=== PATIENT | male | born 1970 | race Caucasian/White ===

== ENCOUNTER 2016-02-22 15:10 | Outpatient (CLI) | payer OTHER ==
[2016-02-22 10:14] LABS: HEMATOCRIT 28.4 % (40.0-51.0); HEMOGLOBIN 9.6 g/dL (13.7-17.5); LIPEMIA HEMOLYSIS FLAG 90 (0-99); MEAN CELL HEMOGLOBIN 31.5 pg (27.9-34.1); MEAN CELL HEMOGLOBIN CONC. 33.8 g/dL (32.4-36.7); MEAN CELL VOLUME 93.1 fL (81.5-99.8); PLATELET CLUMPS FLAG 10 (0-99); PLATELET COUNT 2 10^3/uL (150-400); RED BLOOD CELL COUNT 3.05 10^6/uL (4.40-6.38); RED CELL DISTRIBUTION WIDTH 15.3 % (11.5-15.2)
[2016-02-22] MEDS ORDERED: diphenhydrAMINE 25 MG CAP PO ONE (16:00)
[2016-02-22] MEDS ORDERED: ACETAMINOPHEN 325 MG TAB PO ONE (16:00)
== END 2016-02-22 17:50 | disposition home or self-care (01) ==
LOC: FOBOP 15:10
PROVIDERS: ATTEND Internal Medicine Hematology & Oncology
PROC: 30233R1 Transfusion of Nonautologous Platelets into Peripheral Vein, Percutaneous Approach (ICD-10-PCS; principal; 2016-02-22)
DX: C92.00 Acute myeloblastic leukemia, not having achieved remission (principal)
CPT/HCPCS: P9037

== ENCOUNTER → 2016-02-28 | Outpatient (CLI) | payer OTHER ==
--- NOTE | 2016-02-28 14:37 | US ---
Ultrasound Venous Duplex Doppler right Arm History: Right arm pain and swelling. Comparison: Ultrasound January 24, 2016. Findings: Ultrasound venous duplex/Doppler imaging of right internal jugular vein, subclavian vein, a xillary vein, cephalic vein, brachial vein, radial vein, and ulnar veins demonstrate normal compress ibility, color flow, and Doppler flow without evidence of deep venous thrombosis. However there is po sitive occlusive intraluminal thrombus involving the right basilic vein similar to previous study. Impression: 1. Right basilic vein superficial thrombophlebitis. 2. No deep venous thrombosis right arm. Findings and recommendations discussed with Dr. Box at 1435 hour, today.
== END ==
LOC: FIMAGING 13:35
PROVIDERS: ATTEND Internal Medicine Hematology & Oncology
DX: I80.8 Phlebitis and thrombophlebitis of other sites (principal)

== ENCOUNTER 2016-03-06 09:45 | Inpatient (IN) | payer OTHER ==
[2016-03-06] MEDS ORDERED: IBUPROFEN 600 MG TAB PO ONE (10:58)
[2016-03-06] MEDS ORDERED: ALTEPLASE 2 MG VIAL IVP PRN (11:07)
[2016-03-06] MEDS: IBUPROFEN 600 MG TAB PO PRN ×2 (11:24→19:38)
[2016-03-06] MEDS ORDERED: HYDROmorphONE/DILAUDID 1 MG/ML SYR IVP PRN (11:43)
[2016-03-06] MEDS ORDERED: LORazepam 2 MG/ML INJ IVP PRN (11:43)
[2016-03-06] MEDS ORDERED: ALBUTEROL 3 ML DEYVIAL IH PRN (11:43)
[2016-03-06] MEDS ORDERED: LORazepam 0.5 MG TAB PO PRN (11:43)
[2016-03-06] MEDS ORDERED: ACETAMINOPHEN 325 MG TAB PO PRN (11:43)
[2016-03-06] MEDS ORDERED: ONDANSETRON 4 MG/2 ML VIAL IVP PRN (11:43)
[2016-03-06] MEDS ORDERED: HYDROCODONE/APAP 5/325 TAB PO PRN (11:43)
[2016-03-06] MEDS ORDERED: PROMETHAZINE HCL 25 MG TAB PO PRN (11:43)
[2016-03-06] MEDS ORDERED: ZOLPIDEM TARTRATE 5 MG TAB PO PRN (11:43)
[2016-03-06] MEDS ORDERED: NS W/ 20 KCl/L 1,000 ML IV SCH (11:45)
[2016-03-06] MEDS ORDERED: LACTULOSE 20 GM/30 ML UDCUP PO PRN (11:47)
[2016-03-06] MEDS ORDERED: oxyCODONE IR 5 MG TAB PO PRN (11:47)
[2016-03-06] MEDS: predniSONE 20 MG TAB PO SCH (12:22)
--- NOTE | 2016-03-06 12:33 | GHP ---
[f rep st] HISTORY AND PHYSICAL DATE OF ADMISSION: 03/06/2016 PRIMARY CARE PROVIDER: Dr. Mathew Box. HISTORY OF PRESENT ILLNESS: This is a 45-year-old male with a history of acute myelogenous leukemia, who was admitted for a second round of consolidation therapy. He was initially diagnosed in 12/2015 and underwent induction from 12/30 to 01/26 and then a consolidation round from 02/06 to 02/21/2016. Since his last consolidation, he has been well, healthy and been without fever, chills, sweats, cou gh, sore throat, nasal drainage, abdominal pain, nausea or vomiting. There has been no dysuria, rash or joint or muscle pain. He has in the last 5 days developed a right great toe, at the MTP joint, t enderness and swelling, consistent with prior episodes of gout. This toe is not as warm and as tende r as previously. He recognized it as gout following his recovery of white cell count and started mariah ing prednisone 20 mg yesterday but has not had much improvement. In addition, over the last 2-3 days , he has noticed an area of tenderness and swelling on the left inner forearm at just medial of the a ntecubital fossa. It is not warm but it is tender. He has had no shortness of breath, chest pain or cough. Gentleman had a PICC line placed in his right forearm for induction therapy in December of 2015 and d eveloped a blood clot in that arm at that time he reports. He then had a PICC line placed in the lef t forearm for consolidation therapy in January of 2016 and also reports developed a clot. He has no history of a deep venous thrombosis or a pulmonary embolus. He has not been placed on anticoagulant therapy. PAST SURGERY HISTORY: 1. AML with inv(16). 2. He has had a vasectomy performed. MEDICATIONS: See the med reconciliation sheet. These will be reconciled with the physician when the pharmacy has completed their assessment. ALLERGIES: He has a questionable allergy to some antibiotics, although they are not definitive. He did have a rash with a few. SOCIAL HISTORY: He lives in [place]. He is a [employer] software engineer. He consumes alcohol socially. Drugs: None. He is . FAMILY HISTORY: No prior history of malignancy noted or coronary artery disease. REVIEW OF SYSTEMS: Except as noted in the HPI, the 10-point review of systems is negative. Signific ant positive is the history of gout for which he has used prednisone. PHYSICAL EXAMINATION: GENERAL: Pleasant, alert male, who appears in no distress. HEENT: Shows no signs of trauma. Tongue and buccal mucosa show no lesions, signs of trauma and the teeth are in good repair without any evidence of periodontal disease or caries. NECK: Supple, without meningismus. There is no adenopathy in the cervical or axillary region. CHEST WALL: Nontender to palpation. WARNER GS: Clear to P and A, without wheezing or rales. HEART: Singular S1 and S2. No murmur, gallop, or rub. ABDOMEN: Normoactive bowel sounds. No masses, tenderness, or organomegaly. EXTREMITIES: No edema, cyanosis, or clubbing. The left upper forearm on the medial aspect of the antecubital fossa shows an area of tenderness and of firmness without erythema or signs of cellulitis or ascending lymp hangitis. I cannot palpate a deep cord above this. Right forearm is nontender. The right great toe shows an area of tenderness at the MTP joint, without significant erythema or marked swelling, altho ugh palpation and movement result in significant pain. LABORATORIES: Pending at the time of this dictation. ASSESSMENT: 1. Acute myelogenous leukemia in a patient who is well and healthy at this time, presenting for cons olidation therapy. 2. Acute gout in the right metatarsophalangeal joint. An increased dose of prednisone will be order ed for this. 3. Possible superficial phlebitis in the left upper arm. Ultrasound will be done to assess for evid ence of a DVT. PLAN: Orders for an ultrasound and a PICC line will be done in preparation for his consolidation the rapy. Prednisone ordered for the possibility of gout. Laboratories as needed will be ordered and re viewed. BILLING: The gentleman will be placed in inpatient status as he will require greater than 2 midnight s for completion of his therapy. Time greater than 40 minutes. /[id number]/MODL
--- NOTE | 2016-03-06 13:43 | GCON ---
[f rep st] CONSULTATION MEDICAL ONCOLOGY FOLLOWUP CONSULTATION. REASON FOR CONSULTATION: Ongoing management of acute myelogenous leukemia. The patient is in for his 2nd cycle of high dose robbie-C consolidation. RECOMMENDATIONS: 1. High dose robbie-C consolidation per previous written chemotherapy orders. This is his 2nd cycle. 2. I would evaluate his left arm with an ultrasound to see if he has thrombophlebitis or not. He did have a history of a thrombophlebitis in his right arm after a PICC line placement. 3. The patient will need a PICC line for chemotherapy. 4. He appears to have an exacerbation of gout in his right great toe. He has been treating this with ibuprofen, prednisone and allopurinol. The gout attack seems to be quieting down at this time. ASSESSMENT: This 45-year-old white male was diagnosed with acute myelogenous leukemia in December of 2015. He received induction with 7+3. He was noted to have an inversion 16. His initial course was c omplicated by typhlitis and neutropenic fever. His counts have now recovered after his 1st cycle of c onsolidation. He is ready for his 2nd cycle. At the moment, the patient is essentially asymptomatic. PAST MEDICAL HISTORY: Remarkable for a prior vasectomy. SOCIAL HISTORY: The patient lives in [facility]. He is accompanied by his today. 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 REVIEW OF SYSTEMS: Remarkable for alopecia, tenderness in the left medial antecubital area, and tk n in his right great toe. He reports no nausea, vomiting or changes in bowel habits at this time. A 1 0 system review is otherwise unremarkable. PHYSICAL EXAMINATION: GENERAL: A well-developed white male in no acute distress. He is alert and con versant and oriented x3. His weight on admission is 97.07 kg. HEENT: Shows alopecia. MOUTH: Shows no ulcerations or exudates. LUNGS: Clear to auscultation. CARDIAC: Regular rate and rhythm. ABDOMEN: Act leoncio bowel sounds. EXTREMITIES: Lower extremities show no significant edema. He does have some swellin g noted in his left great toe, and there is mild tenderness to palpation of the medial aspect of the left antecubital fossa. There is no erythema noted there. LABORATORY: His CBC today shows a white count of 8.38 with a hemoglobin of 11.2 and a platelet count of 455,000. His absolute neutrophil count is 3,660. His chemistries show a sodium of 142, his potass ium is 4.1, and his creatinine is 1.1. His liver functions are normal. Thank you very much for allowing us to continue to follow along with you during his hospitalization. We will continue to care for him during this hospitalization and beyond. /[id number]/MODL
[2016-03-06] MEDS: ALLOPURINOL 300 MG TAB PO SCH (14:11)
--- NOTE | 2016-03-06 14:39 | US ---
Duplex Doppler of the Left Upper Extremity Clinical Indications: 45-year-old male with left upper extremity pain, firmness, and swelling. He als o has a history of right upper extremity basilic vein thrombosis. Evaluate for deep or superficial ve nous thrombosis. Technique: The deep veins of the left upper arm, shoulder, and neck were imaged by compression sonog juan j, pulsed Doppler, and color Doppler. Cursory evaluation of the right internal jugular vein and the right subclavian vein were obtained for comparison purposes. Comparison Study: None. Findings: There is superficial venous thrombosis involving the left basilic vein, however clot exten ds as well into the left axillary vein (a deep vein). There is patency of the caudal left internal ju gular vein, the visualized IJ-innominate junction, the visualized subclavian vein, the paired brachia l veins, and the cephalic, radial, and ulnar veins. There is no localized fluid collection. Impression: 1. Superficial venous thrombosis of the left basilic vein. 2. Deep venous thrombosis of the left axillary vein. Results were conveyed Dr. Thanh Deshpande. Dr. Deshpande has also requested duplex reevaluation of the right upper extremity to determine if the patient is a candidate for a PICC line placement on the rig ht side. I have called the ultrasound department and requested that that exam be done, and then revie wed by our interventionalist. A test result has been communicated to a licensed care provider and documented in [employer], 2:36:36 PM , 03/06/2016, [employer] Message ID [id number].
--- NOTE | 2016-03-06 16:09 | US ---
Venous Duplex Doppler Study of Venous Duplex Doppler Study of Right Upper Extremity History: Evaluate right arm for possible PICC line placement, history of extensive left arm DVT and r ight arm basilic vein thrombosis, patient needs PICC line for consolidation chemotherapy for leukemia Comparison: February 28, 2016 Technique: High frequency transducer was used for imaging and Doppler study of the veins of the [facility] upper extremity. Pulsed Doppler and color Doppler were utilized, along with various maneuvers to assess flow in the veins. Findings: Subtotal thrombosis of the right basilic vein only, has not significantly changed. The axil terrell vein, cephalic vein and brachial vein are normally compressible and had normal waveforms within them. Normal color doppler flow is seen within the subclavian vein which is noted to have normal resp iratory variation. The internal jugular vein is normally compressible and has normal Doppler flow wit hin it. No new venous thrombosis is identified. Impression: Little if any change in nonocclusive thrombus in the right basilic vein. Perhaps the norm al cephalic vein could be utilized for right arm PICC line access.
--- NOTE | 2016-03-06 18:08 | IR ---
Imaging-Guided Peripherally Inserted Central Catheter History: Central line access for medications. Known the left upper extremity clot, and partially occ lusive right upper extremity basilic clot. Prophylactic Antibiotic: Cefazolin was not ordered and administered for antimicrobial prophylaxis be cause it was not medically necessary for this procedure. VTE Prophylaxis: There is not an order for VTE prophylaxis to be given within 24 hours after procedu re end time because it was not medically necessary for this procedure. Crosscutting Measure: Patient's current list of medications including all known prescriptions, over- the-counters, herbals, and vitamin/mineral/dietary supplements are reviewed. Medications' name, dosa ge, frequency, and route of administration are confirmed. Technique: Following informed consent, the right arm was prepped and draped in sterile fashion. 1% Xy locaine was used for local anesthetic. All elements of maximal sterile barrier technique including cap, mask, sterile gown, sterile gloves, large sterile sheet, hand hygiene, and 2% chlorhexidine for cutaneous antisepsis, followed. Ultrasound evaluation of potential access site was performed. After successfully identifying a patent vessel, ultrasound guidance was used to puncture the vein. A permanent recording was created for the patient's record. Ultrasound transducer was placed in sterile sleeve and used for real-time imaging guidance over steri le gel to enter the basilic vein. 0.018 measuring wire was passed centrally under fluoroscopic contro l. A skin aidan with scalpel blade was followed by removing the access needle. A 4 Pakistani peel-away sh eath was followed by a 4 Pakistani single-lumen central catheter, trimmed to 45 cm length. The tip of t he catheter was positioned centrally and the guidewire removed. A single fluoroscopic spot image was obtained in inspiration. The hub of the catheter was fixed to the skin using a sterile StatLock adhes leoncio device, and a sterile dressing was applied. The catheter was irrigated. Findings: The tip of the central catheter terminates at the junction of the superior vena cava and th e right atrium. Please note that despite of known partially occlusive right basilic clot, the vein is compressible, a nd I access it without difficulty, advancing the new central line without difficulty. I chose to do t his rather than taking a new vein on the right side because of high risk both the catheter thrombosin g back vein, which could in turn be more clinically significant for this patient. Fluoroscopy: 0.1 minutes, one images Impression: 4 Pakistani single lumen peripherally inserted central catheter is ready to use.
[2016-03-06] MEDS: prednisoLONE ACET 1% 5 ML OPHT.BTL EACHEYE SCH (19:07)
[2016-03-06] MEDS: ONDANSETRON 4 MG/2 ML VIAL IVP SCH (20:45)
[2016-03-06] MEDS: DEXAMETHASONE SOD PHOSPHATE 10 MG in NS 50 ML IV SCH (20:46)
[2016-03-06] MEDS: CYTARABINE IV SCH (21:51)
[2016-03-06] MEDS: NS IV SCH (21:51)
[2016-03-06 22:39] LABS: COLOR YELLOW; LEUKOCYTE ESTERASE,URINE NEGATIVE (NEGATIVE); NITRITE,URINE NEGATIVE (NEGATIVE)
[2016-03-07] MEDS: prednisoLONE ACET 1% 5 ML OPHT.BTL EACHEYE SCH ×5 (00:01→23:04)
[2016-03-07 06:45] LABS: ABSOLUTE NRBC COUNT 0.25 10^3/uL (0-0.01); ADD DIFF? YES; ADD MORPH? YES; ADD SCAN? NO; ATYPICAL LYMPHOCYTE FLAG 0 (0-99); FRAGMENT RBC FLAG 10 (0-99); HEMATOCRIT 31.1 % (40.0-51.0); HEMOGLOBIN 9.8 g/dL (13.7-17.5); LEFT SHIFT FLG 30 (0-99); LIPEMIA HEMOLYSIS FLAG 80 (0-99); MEAN CELL HEMOGLOBIN 31.7 pg (27.9-34.1); MEAN CELL HEMOGLOBIN CONCENTR. 31.5 g/dL (32.4-36.7); MEAN CELL VOLUME 100.6 fL (81.5-99.8); MEAN PLATELET VOLUME 9.4 fL (8.7-11.7); PLATELET CLUMPS FLAG 20 (0-99); PLATELET COUNT 454 10^3/uL (150-400); RED BLOOD CELL COUNT 3.09 10^6/uL (4.40-6.38)
[2016-03-07 06:49] LABS: NRBC-AUTO% 2.4 % (0.0-0.2); RED CELL DISTRIBUTION WIDTH 20.6 % (11.5-15.2)
[2016-03-07 07:17] LABS: ANION GAP 7 mEq/L (8-16); CALCIUM 8.6 mg/dL (8.5-10.4); CARBON DIOXIDE 25 mEq/l (22-31); CHLORIDE 106 mEq/L (97-110); CREATININE 0.7 mg/dL (0.7-1.3); GLOMERULAR FILTRATION RATE > 60; GLUCOSE 109 mg/dL (70-100); POTASSIUM 5.1 mEq/L (3.5-5.2); SODIUM 138 mEq/L (134-144)
[2016-03-07 07:34] LABS: MACROCYTES 1+; MICROCYTES 1+; PLATELET ESTIMATE INCREASED (ADEQ); POLYCHROMASIA 3+
[2016-03-07 07:35] LABS: GIANT PLATELETS PRESENT
[2016-03-07] MEDS: predniSONE 20 MG TAB PO SCH (08:44)
[2016-03-07] MEDS: ALLOPURINOL 300 MG TAB PO SCH (08:44)
[2016-03-07] MEDS: IBUPROFEN 600 MG TAB PO PRN (08:44)
[2016-03-07] MEDS: ONDANSETRON 4 MG/2 ML VIAL IVP SCH (08:45)
[2016-03-07] MEDS ORDERED: ENOXAPARIN 40 MG/0.4 ML SYR SC SCH (09:00)
--- NOTE | 2016-03-07 09:11 | SOAPPROG ---
ANIYAH Progress Note Assessment/Plan: Assessment: - AML in remission. Later today will start C2D2 of high dose ELSA-C consolidation. Patient had questions about BMT. I let him know that typically with AML he would need an allogenic transplant. He submitted his cheek swab kit today. - Gout R great toe - symptomatically improved. Plan: Continue high dose ELSA-C consolidation. Subjective: Pain better. Seems 'activated' on steroids. Objective: Vital Signs Temp Pulse Resp BP Pulse Ox 36.5 C 68 16 132/78 H 94 03/07/16 06:14 03/07/16 06:14 03/07/16 06:14 03/07/16 06:14 03/07/16 06:14 Laboratory Results 03/07/16 06:20 03/07/16 06:20 03/05/16 03/06/16 03/07/16 23:59 23:59 23:59 Intake Total 300 1518 Output Total 2 800 Balance 298 718 Physical Exam - Physical Exam General Appearance: alert, no apparent distress Respiratory: lungs clear Cardiac/Chest: regular rate, rhythm Abdomen: normal bowel sounds Extremities: other (no erythema R great toe) ICD10 Worksheet Patient Problems: Problems Problem Status Diagnosed AML (acute myeloblastic leukemia) Acute Febrile neutropenia Acute Pancytopenia due to antineoplastic chemotherapy Acute Typhlitis Acute
[2016-03-07] MEDS: CYTARABINE IV SCH (09:28)
[2016-03-07] MEDS: NS IV SCH (09:28)
--- NOTE | 2016-03-07 10:06 | HOSPPROG ---
Hospitalist Progress Note Assessment/Plan: ASSESSMENT/PLAN: # L axillary DVT - will discuss with Dr. Frank - doubt anticoagulation is appropriate # AML, inv 16 - C2D2 chemo per oncology # R great toe gout - prednisone SUBJECTIVE: Right great toe feels better; complains of pain in his left arm OBJECTIVE: Vitals reviewed Comfortable, no acute distress Regular rate and rhythm, no murmurs rubs or gallops No respiratory distress, lungs clear to auscultation bilaterally; no wheezes rales or rhonchi Abdomen with normal bowel sounds, soft, nontender, nondistended IMAGING: Ultrasound reviewed, DVT and left axillary vein Objective: Vital Signs Temp Pulse Resp BP Pulse Ox 37.0 C 81 16 138/82 H 97 03/07/16 09:07 03/07/16 09:07 03/07/16 09:07 03/07/16 09:07 03/07/16 09:07 Laboratory Results 03/07/16 06:20 03/07/16 06:20 03/06/16 03/07/16 03/08/16 05:59 05:59 05:59 Intake Total 1818 Output Total 802 Balance 1016 ICD10 Worksheet Patient Problems: Problems Problem Status Diagnosed AML (acute myeloblastic leukemia) Acute Febrile neutropenia Acute Pancytopenia due to antineoplastic chemotherapy Acute Typhlitis Acute
[2016-03-07] MEDS ORDERED: ENOXAPARIN 60 MG/0.6 ML SYR SC ONE (10:30)
[2016-03-07] MEDS: ONDANSETRON DISINTEGRATING 4 MG TAB PO PRN (12:44)
[2016-03-07] MEDS ORDERED: PROCHLORPERAZINE MALEATE 10 MG TAB PO PRN (14:53)
[2016-03-07] MEDS ORDERED: NS 1,000 ML IV SCH (15:00)
[2016-03-07] MEDS: ENOXAPARIN 100 MG/ML SYR SC SCH (22:59)
[2016-03-07] MEDS: SENNOSIDES/DOCUSATE SODIUM TAB PO PRN (23:11)
[2016-03-08 06:18] LABS: ABSOLUTE IMMATURE GRANULOCYTES 0.07 10^3/uL (0.00-0.10); ABSOLUTE NRBC COUNT 0.04 10^3/uL (0-0.01); ADD DIFF? NO; ADD MORPH? YES; ADD SCAN? NO; ATYPICAL LYMPHOCYTE FLAG 0 (0-99); FRAGMENT RBC FLAG 10 (0-99); HEMATOCRIT 30.5 % (40.0-51.0); HEMOGLOBIN 9.7 g/dL (13.7-17.5); LEFT SHIFT FLG 0 (0-99); LIPEMIA HEMOLYSIS FLAG 80 (0-99); MEAN CELL HEMOGLOBIN CONCENTR. 31.8 g/dL (32.4-36.7); MEAN CELL VOLUME 100.7 fL (81.5-99.8); MEAN PLATELET VOLUME 9.4 fL (8.7-11.7); NRBC-AUTO% 0.6 % (0.0-0.2); PLATELET CLUMPS FLAG 0 (0-99); PLATELET COUNT 340 10^3/uL (150-400); RED BLOOD CELL COUNT 3.03 10^6/uL (4.40-6.38)
[2016-03-08 06:20] LABS: RED CELL DISTRIBUTION WIDTH 20.8 % (11.5-15.2)
[2016-03-08] MEDS: prednisoLONE ACET 1% 5 ML OPHT.BTL EACHEYE SCH ×3 (06:37→18:06)
[2016-03-08 06:39] LABS: ANION GAP 4 mEq/L (8-16); CALCIUM 8.7 mg/dL (8.5-10.4); CARBON DIOXIDE 28 mEq/l (22-31); CHLORIDE 107 mEq/L (97-110); CREATININE 0.9 mg/dL (0.7-1.3); GLOMERULAR FILTRATION RATE > 60; GLUCOSE 77 mg/dL (70-100); POTASSIUM 4.5 mEq/L (3.5-5.2); SODIUM 139 mEq/L (134-144)
[2016-03-08 06:40] LABS: MACROCYTES 1+; POLYCHROMASIA 1+; STOMATOCYTES 1+
[2016-03-08 06:41] LABS: PLATELET ESTIMATE ADEQUATE (ADEQ)
--- NOTE | 2016-03-08 09:21 | HOSPPROG ---
Hospitalist Progress Note Assessment/Plan: ASSESSMENT/PLAN: # L axillary DVT - plan anticoagulation while platelets are greater than 50,000 # AML, inv 16 - C2D2 chemo per oncology - induction complicated by typhlitis # R great toe gout - prednisone SUBJECTIVE: had some nausea yesterday OBJECTIVE: Vitals reviewed Comfortable, no acute distress Regular rate and rhythm, no murmurs rubs or gallops No respiratory distress, lungs clear to auscultation bilaterally; no wheezes rales or rhonchi Abdomen with normal bowel sounds, soft, nontender, nondistended mod risk with chemo induction Objective: Vital Signs Temp Pulse Resp BP Pulse Ox 36.7 C 92 16 144/84 H 97 03/08/16 08:52 03/08/16 08:52 03/08/16 08:52 03/08/16 08:52 03/08/16 08:52 Laboratory Results 03/08/16 05:55 03/08/16 05:55 03/07/16 03/08/16 03/09/16 05:59 05:59 05:59 Intake Total 0927 7516 Output Total 114 6687 Balance 1016 -234 ICD10 Worksheet Patient Problems: Problems Problem Status Diagnosed AML (acute myeloblastic leukemia) Acute Febrile neutropenia Acute Pancytopenia due to antineoplastic chemotherapy Acute Typhlitis Acute
[2016-03-08] MEDS: predniSONE 20 MG TAB PO SCH (09:44)
[2016-03-08] MEDS: ALLOPURINOL 300 MG TAB PO SCH (09:44)
[2016-03-08] MEDS: SENNOSIDES/DOCUSATE SODIUM TAB PO PRN (09:44)
[2016-03-08] MEDS: ENOXAPARIN 100 MG/ML SYR SC SCH ×2 (09:44→21:26)
[2016-03-08] MEDS: IBUPROFEN 600 MG TAB PO PRN (09:59)
--- NOTE | 2016-03-08 12:12 | SOAPPROG ---
SOREBA Progress Note Assessment/Plan: Assessment: - AML in remission. Later today will start C2D3 of high dose ELSA-C consolidation. In general he is tolerating his chemo well - Gout R great toe - symptomatically improved. - L axillary vein thrombosis - on lovenox for now. Will hold it if he goes below 50k on his plts Plan: Continue high dose ELSA-C consolidation. Continue lovenox Subjective: No new complaints. Tolerating treatment well. Objective: Vital Signs Temp Pulse Resp BP Pulse Ox 36.7 C 92 16 144/84 H 97 03/08/16 08:52 03/08/16 08:52 03/08/16 08:52 03/08/16 08:52 03/08/16 08:52 Laboratory Results 03/08/16 05:55 03/08/16 05:55 03/06/16 03/07/16 03/08/16 23:59 23:59 23:59 Intake Total 300 3334 400 Output Total 2 2300 950 Balance 298 1034 -550 Physical Exam - Physical Exam General Appearance: alert, no apparent distress Neck: other Respiratory: lungs clear Cardiac/Chest: regular rate, rhythm Abdomen: normal bowel sounds, non-tender Skin: warm/dry, pallor Neuro/Psych: alert, normal mood/affect, oriented x 3 ICD10 Worksheet Patient Problems: Problems Problem Status Diagnosed AML (acute myeloblastic leukemia) Acute Febrile neutropenia Acute Pancytopenia due to antineoplastic chemotherapy Acute Typhlitis Acute
[2016-03-08] MEDS ORDERED: NS 1,000 ML IV SCH (18:00)
[2016-03-08] MEDS: ONDANSETRON 4 MG/2 ML VIAL IVP SCH (20:03)
[2016-03-08] MEDS: DEXAMETHASONE SOD PHOSPHATE 10 MG in NS 50 ML IV SCH (20:03)
[2016-03-08] MEDS: CYTARABINE IV SCH (21:09)
[2016-03-08] MEDS: NS IV SCH (21:09)
[2016-03-09] MEDS: prednisoLONE ACET 1% 5 ML OPHT.BTL EACHEYE SCH ×4 (00:31→21:32)
[2016-03-09 06:10] LABS: % IMMATURE GRANULYOCYTES 0.7 % (0.0-1.1); ABSOLUTE IMMATURE GRANULOCYTES 0.04 10^3/uL (0.00-0.10); ABSOLUTE NRBC COUNT 0.02 10^3/uL (0-0.01); ADD DIFF? NO; ADD MORPH? NO; ADD SCAN? NO; ATYPICAL LYMPHOCYTE FLAG 0 (0-99); FRAGMENT RBC FLAG 0 (0-99); HEMATOCRIT 29.1 % (40.0-51.0); HEMOGLOBIN 9.5 g/dL (13.7-17.5); LEFT SHIFT FLG 0 (0-99); LIPEMIA HEMOLYSIS FLAG 80 (0-99); MEAN CELL HEMOGLOBIN 32.5 pg (27.9-34.1); MEAN CELL HEMOGLOBIN CONCENTR. 32.6 g/dL (32.4-36.7); MEAN CELL VOLUME 99.7 fL (81.5-99.8); MEAN PLATELET VOLUME 9.5 fL (8.7-11.7); NRBC-AUTO% 0.3 % (0.0-0.2); PLATELET CLUMPS FLAG 0 (0-99); PLATELET COUNT 318 10^3/uL (150-400); RED BLOOD CELL COUNT 2.92 10^6/uL (4.40-6.38)
[2016-03-09 06:37] LABS: ALANINE AMINOTRANSFERASE 47 IU/L (21-72); ALBUMIN 2.8 g/dL (3.5-5.0); ALKALINE PHOSPHATASE 49 IU/L (38-126); ANION GAP 7 mEq/L (8-16); ASPARTATE AMINOTRANSFERASE 15 IU/L (17-59); BILIRUBIN,TOTAL 0.6 mg/dL (0.1-1.4); CALCIUM 8.6 mg/dL (8.5-10.4); CARBON DIOXIDE 27 mEq/l (22-31); CHLORIDE 105 mEq/L (97-110); CREATININE 0.7 mg/dL (0.7-1.3); GLOMERULAR FILTRATION RATE > 60; GLUCOSE 104 mg/dL (70-100); POTASSIUM 4.7 mEq/L (3.5-5.2); SODIUM 139 mEq/L (134-144); TOTAL PROTEIN 5.3 g/dL (6.3-8.2)
[2016-03-09] MEDS: ENOXAPARIN 100 MG/ML SYR SC SCH ×2 (08:49→21:32)
[2016-03-09] MEDS: ALLOPURINOL 300 MG TAB PO SCH (08:50)
[2016-03-09] MEDS: predniSONE 20 MG TAB PO SCH (08:50)
[2016-03-09] MEDS: ONDANSETRON 4 MG/2 ML VIAL IVP SCH (08:50)
[2016-03-09] MEDS: NS IV SCH (10:07)
[2016-03-09] MEDS: CYTARABINE IV SCH (10:07)
--- NOTE | 2016-03-09 11:39 | SOAPPROG ---
ANIYAH Progress Note Assessment/Plan: Assessment: - AML in remission. Later today will start C2D4 of high dose ELSA-C consolidation. In general he is tolerating his chemo well. No evidence of ataxia or conjunctivitis. CBC still OK with no need for txn - Gout - R great toe - symptomatically improved. L great toe is a little tender today. No erythema on either side. - L axillary vein thrombosis - on lovenox for now. Will hold it if he goes below 50k on his plts. Discussed anticoag alternatives, but LMWH is the best answer for him at the moment. - Blurry vision - Slight decrease in visual acuity. No field cut or diplopia. No conjunctival irritation. This is probably related to chemo/dexamethasone. Plan: Continue high dose ELSA-C consolidation. Continue lovenox Check uric acid/phos Monitor vision Subjective: C/O slight decrease in visual acuity. No N/V. No eye irritation. Objective: Vital Signs Temp Pulse Resp BP Pulse Ox 36.6 C 57 L 16 134/74 H 95 03/09/16 07:54 03/09/16 07:54 03/09/16 07:54 03/09/16 07:54 03/09/16 07:54 Laboratory Results 03/09/16 06:00 03/09/16 06:00 03/07/16 03/08/16 03/09/16 23:59 23:59 23:59 Intake Total 3334 2525 537.7 Output Total 2300 1650 2500 Balance 1034 875 -1962.3 Physical Exam - Physical Exam General Appearance: WD/WN, alert, no apparent distress EENT: PERRL/EOMI, other (no conjunctival injection) Respiratory: lungs clear Cardiac/Chest: regular rate, rhythm Abdomen: normal bowel sounds, non-tender Skin: normal color, warm/dry Neuro/Psych: No abnormal cerebellar tests (F>N and H>S intact bilaterally) ICD10 Worksheet Patient Problems: Problems Problem Status Diagnosed AML (acute myeloblastic leukemia) Acute Febrile neutropenia Acute Pancytopenia due to antineoplastic chemotherapy Acute Typhlitis Acute
[2016-03-09 12:06] LABS: URIC ACID 4.9 mg/dL (3.5-8.5)
--- NOTE | 2016-03-09 15:45 | HOSPPROG ---
Hospitalist Progress Note Assessment/Plan: ASSESSMENT/PLAN: # L axillary DVT - plan anticoagulation while platelets are greater than 50,000 # AML, inv 16 - C2D3 chemo per oncology - induction complicated by typhlitis # R great toe gout - prednisone # blurry vision - does not seem indicative of anything acutely neurologic, will continue to follow SUBJECTIVE: Complains of slightly blurry vision, no other neuro deficits OBJECTIVE: Vitals reviewed Comfortable, no acute distress Regular rate and rhythm, no murmurs rubs or gallops No respiratory distress, lungs clear to auscultation bilaterally; no wheezes rales or rhonchi Abdomen with normal bowel sounds, soft, nontender, nondistended mod risk with chemo induction Objective: Vital Signs Temp Pulse Resp BP Pulse Ox 36.7 C 70 16 150/90 H 95 03/09/16 15:02 03/09/16 15:02 03/09/16 15:02 03/09/16 15:02 03/09/16 07:54 Laboratory Results 03/09/16 06:00 03/09/16 06:00 03/08/16 03/09/16 03/10/16 05:59 05:59 05:59 Intake Total 2216 2662.7 Output Total 2450 2450 750 Balance -234 212.7 -750 ICD10 Worksheet Patient Problems: Problems Problem Status Diagnosed AML (acute myeloblastic leukemia) Acute Febrile neutropenia Acute Pancytopenia due to antineoplastic chemotherapy Acute Typhlitis Acute
[2016-03-10] MEDS: prednisoLONE ACET 1% 5 ML OPHT.BTL EACHEYE SCH ×4 (01:13→18:01)
[2016-03-10 04:58] LABS: % IMMATURE GRANULYOCYTES 0.6 % (0.0-1.1); ABSOLUTE IMMATURE GRANULOCYTES 0.03 10^3/uL (0.00-0.10); ADD DIFF? NO; ADD MORPH? NO; ADD SCAN? NO; ATYPICAL LYMPHOCYTE FLAG 0 (0-99); FRAGMENT RBC FLAG 0 (0-99); HEMATOCRIT 28.3 % (40.0-51.0); HEMOGLOBIN 9.1 g/dL (13.7-17.5); LEFT SHIFT FLG 0 (0-99); LIPEMIA HEMOLYSIS FLAG 80 (0-99); MEAN CELL HEMOGLOBIN 32.3 pg (27.9-34.1); MEAN CELL HEMOGLOBIN CONCENTR. 32.2 g/dL (32.4-36.7); MEAN CELL VOLUME 100.4 fL (81.5-99.8); MEAN PLATELET VOLUME 9.4 fL (8.7-11.7); PLATELET CLUMPS FLAG 0 (0-99); PLATELET COUNT 264 10^3/uL (150-400); RED BLOOD CELL COUNT 2.82 10^6/uL (4.40-6.38); RED CELL DISTRIBUTION WIDTH 19.7 % (11.5-15.2)
[2016-03-10 05:31] LABS: ALANINE AMINOTRANSFERASE 71 IU/L (21-72); ALBUMIN 2.8 g/dL (3.5-5.0); ALKALINE PHOSPHATASE 46 IU/L (38-126); ANION GAP 4 mEq/L (8-16); ASPARTATE AMINOTRANSFERASE 36 IU/L (17-59); BILIRUBIN,TOTAL 0.8 mg/dL (0.1-1.4); CALCIUM 8.6 mg/dL (8.5-10.4); CARBON DIOXIDE 31 mEq/l (22-31); CHLORIDE 105 mEq/L (97-110); CREATININE 0.8 mg/dL (0.7-1.3); GLOMERULAR FILTRATION RATE > 60; GLUCOSE 84 mg/dL (70-100); POTASSIUM 4.3 mEq/L (3.5-5.2); SODIUM 140 mEq/L (134-144); TOTAL PROTEIN 5.1 g/dL (6.3-8.2)
--- NOTE | 2016-03-10 09:02 | HOSPPROG ---
Hospitalist Progress Note Assessment/Plan: ASSESSMENT/PLAN: 45-year-old man with AML here for his 2nd round of consolidation chemotherapy. Uncomplicated course so far. # L axillary DVT - anticoagulation while platelets are greater than 50,000 # AML, inv 16 - consolidation chemo C2D4 per oncology - induction complicated by typhlitis - prophylactic Levaquin # R great toe gout - prednisone, allopurinol # blurry vision - does not seem indicative of anything acutely neurologic, will continue to follow SUBJECTIVE: No headache, no nausea; slept well last night OBJECTIVE: Vitals reviewed Comfortable, no acute distress Regular rate and rhythm, no murmurs rubs or gallops No respiratory distress, lungs clear to auscultation bilaterally; no wheezes rales or rhonchi Abdomen with normal bowel sounds, soft, nontender, nondistended mod risk with chemo induction Objective: Vital Signs Temp Pulse Resp BP Pulse Ox 36.7 C 114 H 18 90/67 L 90 L 03/10/16 06:49 03/10/16 06:49 03/10/16 06:49 03/10/16 06:49 03/10/16 06:49 Laboratory Results 03/10/16 04:45 03/10/16 04:45 03/09/16 03/10/16 03/11/16 05:59 05:59 05:59 Intake Total 2662.7 200 Output Total 2450 1200 Balance 212.7 -1000 ICD10 Worksheet Patient Problems: Problems Problem Status Diagnosed AML (acute myeloblastic leukemia) Acute Febrile neutropenia Acute Pancytopenia due to antineoplastic chemotherapy Acute Typhlitis Acute
[2016-03-10] MEDS: predniSONE 20 MG TAB PO SCH (09:41)
[2016-03-10] MEDS: ALLOPURINOL 300 MG TAB PO SCH (09:41)
[2016-03-10] MEDS: ENOXAPARIN 100 MG/ML SYR SC SCH ×2 (09:42→20:51)
[2016-03-10] MEDS: IBUPROFEN 600 MG TAB PO PRN ×2 (11:40→18:44)
[2016-03-10] MEDS: ONDANSETRON DISINTEGRATING 4 MG TAB PO PRN (11:42)
--- NOTE | 2016-03-10 14:41 | SOAPPROG ---
ANIYAH Progress Note Assessment/Plan: Assessment: - AML in remission. Later today will start C2D5 of high dose ELSA-C consolidation. In general he is tolerating his chemo well. No evidence of ataxia or conjunctivitis. CBC still OK with no need for txn - Gout - R great toe - symptomatically improved. L great toe is a little tender today. No erythema on either side. Pain waxes and wanes. - L axillary vein thrombosis - on lovenox for now. Will hold it if he goes below 50k on his plts. Discussed anticoag alternatives, but LMWH is the best answer for him at the moment. - Blurry vision - Slight decrease in visual acuity. No field cut or diplopia. No conjunctival irritation. This is probably related to chemo/dexamethasone. No change today Plan: Finish high dose ELSA-C consolidation in AM then D/C to home. Continue lovenox - further instructions will be given when seen in the office. Monitor vision F/U in office on 03/13/16 Subjective: Minor toe pain and nausea. Vision stable. Objective: Vital Signs Temp Pulse Resp BP Pulse Ox 36.6 C 64 16 130/80 H 98 03/10/16 09:49 03/10/16 09:49 03/10/16 09:49 03/10/16 09:49 03/10/16 09:49 Laboratory Results 03/10/16 04:45 03/10/16 04:45 03/08/16 03/09/16 03/10/16 23:59 23:59 23:59 Intake Total 2525 537.7 200 Output Total 1650 2500 450 Balance 875 -1962.3 -250 Physical Exam - Physical Exam General Appearance: alert, no apparent distress Respiratory: lungs clear Cardiac/Chest: regular rate, rhythm Abdomen: normal bowel sounds, non-tender, soft Skin: pallor, No rash Neuro/Psych: alert, normal mood/affect, oriented x 3 ICD10 Worksheet Patient Problems: Problems Problem Status Diagnosed AML (acute myeloblastic leukemia) Acute Febrile neutropenia Acute Pancytopenia due to antineoplastic chemotherapy Acute Typhlitis Acute
[2016-03-10] MEDS: DEXAMETHASONE SOD PHOSPHATE 10 MG in NS 50 ML IV SCH (18:02)
[2016-03-10] MEDS: ONDANSETRON 4 MG/2 ML VIAL IVP SCH (18:02)
[2016-03-10] MEDS: NS IV SCH (18:44)
[2016-03-10] MEDS: CYTARABINE IV SCH (18:44)
[2016-03-11] MEDS: prednisoLONE ACET 1% 5 ML OPHT.BTL EACHEYE SCH ×3 (00:02→12:42)
[2016-03-11 06:42] LABS: % IMMATURE GRANULYOCYTES 0.6 % (0.0-1.1); ABSOLUTE IMMATURE GRANULOCYTES 0.03 10^3/uL (0.00-0.10); ADD DIFF? NO; ADD MORPH? NO; ADD SCAN? NO; ATYPICAL LYMPHOCYTE FLAG 0 (0-99); FRAGMENT RBC FLAG 0 (0-99); HEMATOCRIT 27.5 % (40.0-51.0); HEMOGLOBIN 8.9 g/dL (13.7-17.5); LEFT SHIFT FLG 0 (0-99); LIPEMIA HEMOLYSIS FLAG 80 (0-99); MEAN CELL HEMOGLOBIN 32.4 pg (27.9-34.1); MEAN CELL HEMOGLOBIN CONCENTR. 32.4 g/dL (32.4-36.7); MEAN PLATELET VOLUME 9.9 fL (8.7-11.7); PLATELET CLUMPS FLAG 0 (0-99); PLATELET COUNT 258 10^3/uL (150-400); RED BLOOD CELL COUNT 2.75 10^6/uL (4.40-6.38); RED CELL DISTRIBUTION WIDTH 18.9 % (11.5-15.2)
[2016-03-11 06:45] LABS: ALANINE AMINOTRANSFERASE 81 IU/L (21-72); ALBUMIN 2.7 g/dL (3.5-5.0); ALKALINE PHOSPHATASE 49 IU/L (38-126); ANION GAP 7 mEq/L (8-16); ASPARTATE AMINOTRANSFERASE 30 IU/L (17-59); BILIRUBIN,TOTAL 0.5 mg/dL (0.1-1.4); CALCIUM 8.5 mg/dL (8.5-10.4); CARBON DIOXIDE 28 mEq/l (22-31); CHLORIDE 104 mEq/L (97-110); CREATININE 0.8 mg/dL (0.7-1.3); GLOMERULAR FILTRATION RATE > 60; GLUCOSE 113 mg/dL (70-100); POTASSIUM 4.4 mEq/L (3.5-5.2); SODIUM 139 mEq/L (134-144); TOTAL PROTEIN 5.1 g/dL (6.3-8.2)
[2016-03-11 08:16] VITALS: PULSE 79
[2016-03-11] MEDS: predniSONE 20 MG TAB PO SCH (09:10)
[2016-03-11] MEDS: ENOXAPARIN 100 MG/ML SYR SC SCH (09:10)
[2016-03-11] MEDS: ALLOPURINOL 300 MG TAB PO SCH (09:10)
[2016-03-11] MEDS: IBUPROFEN 600 MG TAB PO PRN (09:10)
[2016-03-11] MEDS: ONDANSETRON 4 MG/2 ML VIAL IVP SCH (09:11)
[2016-03-11] MEDS: NS IV SCH (10:00)
[2016-03-11] MEDS: CYTARABINE IV SCH (10:00)
[2016-03-11 12:46] VITALS: BP 122/82; RESP 16; TEMP 98.5; O2SAT 95
--- NOTE | 2016-03-11 13:40 | SOAPPROG ---
ANIYAH Progress Note Assessment/Plan: Assessment: 1) AML (inversion 16) cycle 2 / day 6 High dose cytarabine consolidation 2) L UE DVT 3) Gout 4) Pancytopenia secondary to #1 Plan: Orion completed his high dose cytarabine earlier today. He is doing well with no signs of adverse toxicity. Plan d/c home today. He is instructed to continue his steroid eye drops every 6 hours x 24 hours more (will be provided by hospital at discharge) He will need to continue on Levaquin 500 mg daily, Prednisone 40 mg daily for his gout, and Lovenox 100 mg BID. His PICC line will be removed prior to discharged. He has a follow up appointment with Dr. Box on Sunday and his meds will be further adjusted at that time. He is asked to keisha the health consultant MD over the weekend with any new issues. Case d/w patient, Dr. Ambriz, Nursing. 03/11/16 13:33 Subjective: Feels well. Cytarabine completed. Denies LIND, visual change, nausea, rash Objective: Vital Signs Temp Pulse Resp BP Pulse Ox 36.9 C 79 16 122/82 H 95 03/11/16 12:00 03/11/16 12:00 03/11/16 12:00 03/11/16 12:00 03/11/16 12:00 Laboratory Results 03/11/16 06:10 03/11/16 06:10 03/10/16 03/11/16 03/12/16 05:59 05:59 05:59 Intake Total 200 1865 Output Total 1200 1300 800 Balance -1000 565 -800 - Time Spent With Patient Time Spent With Patient: 40 minutes Physical Exam - Physical Exam General Appearance: alert, no apparent distress EENT: PERRL/EOMI Respiratory: lungs clear Cardiac/Chest: regular rate, rhythm Abdomen: non-tender, soft Skin: normal color Extremities: other (Mild tenderness Right great toe. Picc line site clean. No upper extremity swelling) Neuro/Psych: no motor/sensory deficits, alert, normal mood/affect ICD10 Worksheet Patient Problems: Problems Problem Status Diagnosed AML (acute myeloblastic leukemia) Acute Febrile neutropenia Acute Pancytopenia due to antineoplastic chemotherapy Acute Typhlitis Acute
[2016-03-11] MEDS: ONDANSETRON DISINTEGRATING 4 MG TAB PO PRN (15:09)
== END 2016-03-11 15:37 | disposition home or self-care (01) | DRG 838 ==
LOC: F1N 09:45
PROVIDERS: ADMIT Internal Medicine Pulmonary Disease; ATTEND Internal Medicine Pulmonary Disease
PROC: 3E04305 Introduction of Other Antineoplastic into Central Vein, Percutaneous Approach (ICD-10-PCS; principal; 2016-03-06)
PROC: 02HV33Z Insertion of Infusion Device into Superior Vena Cava, Percutaneous Approach (ICD-10-PCS; principal; 2016-03-06)
DX: Z51.11 Encounter for antineoplastic chemotherapy (principal); C92.01 Acute myeloblastic leukemia, in remission; I82.622 Acute embolism and thrombosis of deep veins of left upper extremity; M10.9 Gout, unspecified; H53.8 Other visual disturbances
CPT/HCPCS: C1751; J1650; J2405; J9100

== ENCOUNTER 2016-03-20 14:23 | Outpatient (CLI) | payer OTHER ==
[2016-03-20 08:56] LABS: HEMATOCRIT 23.7 % (40.0-51.0); LIPEMIA HEMOLYSIS FLAG 90 (0-99); MEAN CELL HEMOGLOBIN 32.4 pg (27.9-34.1); MEAN CELL HEMOGLOBIN CONC. 33.8 g/dL (32.4-36.7); PLATELET CLUMPS FLAG 0 (0-99); PLATELET COUNT 4 10^3/uL (150-400); RED BLOOD CELL COUNT 2.47 10^6/uL (4.40-6.38); RED CELL DISTRIBUTION WIDTH 16.6 % (11.5-15.2)
[2016-03-20 09:24] LABS: ALANINE AMINOTRANSFERASE 143 IU/L (21-72); ALBUMIN 3.2 g/dL (3.5-5.0); ALKALINE PHOSPHATASE 57 IU/L (38-126); ANION GAP 6 mEq/L (8-16); ASPARTATE AMINOTRANSFERASE 28 IU/L (17-59); BILIRUBIN,TOTAL 0.4 mg/dL (0.1-1.4); CALCIUM 8.6 mg/dL (8.5-10.4); CARBON DIOXIDE 28 mEq/l (22-31); CHLORIDE 110 mEq/L (97-110); CREATININE 0.8 mg/dL (0.7-1.3); GLOMERULAR FILTRATION RATE > 60; GLUCOSE 101 mg/dL (70-100); POTASSIUM 4.6 mEq/L (3.5-5.2); SODIUM 144 mEq/L (134-144); TOTAL PROTEIN 5.8 g/dL (6.3-8.2)
[2016-03-20] MEDS ORDERED: ACETAMINOPHEN 325 MG TAB ONE (14:50)
[2016-03-20] MEDS ORDERED: ACETAMINOPHEN 325 MG TAB PO ONE (15:00)
== END 2016-03-20 16:00 | disposition home or self-care (01) ==
LOC: F3NOP 14:23
PROVIDERS: ATTEND Internal Medicine Hematology & Oncology
PROC: 30233R1 Transfusion of Nonautologous Platelets into Peripheral Vein, Percutaneous Approach (ICD-10-PCS; principal; 2016-03-20)
DX: C92.01 Acute myeloblastic leukemia, in remission (principal)
CPT/HCPCS: 36430; P9037; 99001-90; J1200

== ENCOUNTER 2016-03-24 14:37 | Inpatient (IN) | payer OTHER ==
[2016-03-24] MEDS ORDERED: ACETAMINOPHEN 325 MG TAB PO PRN (16:16)
[2016-03-24] MEDS ORDERED: ONDANSETRON 4 MG/2 ML VIAL IVP PRN (16:16)
[2016-03-24] MEDS ORDERED: oxyCODONE IR 5 MG TAB PO PRN (16:16)
[2016-03-24] MEDS: IBUPROFEN 600 MG TAB PO PRN ×2 (17:11→22:13)
--- NOTE | 2016-03-24 17:17 | DX ---
Chest, PA and Lateral History: Normal neutropenic fever, finished chemotherapy 12 days ago, leukemia Findings: Lungs are clear, without infiltrate or consolidation. Heart size is normal. There is no nohemi nopathy or mass lesion. There is no pleural effusion or pulmonary nodule formation. A right arm PICC line has been removed.. Bones are unremarkable for age. Impression: No evidence for pneumonia. No source for fever identified.
--- NOTE | 2016-03-24 17:57 | GHP ---
[f rep st] HISTORY AND PHYSICAL DATE OF ADMISSION: 03/24/2016 DATE OF EVALUATION: 03/24/2016 CHIEF COMPLAINT: Right facial swelling. HISTORY: The patient is a 45-year-old male on chemotherapy for AML, presenting with jaw pain and hea dache. Three days ago he started to notice increasing swelling on the right side of his face with he adache behind his eye and occipital on the right. [facility] yesterday, and had a CT scan done, which showed cervical lymphadenop athy, right greater than left, up to 1.6 cm on the right. It was otherwise unremarkable. He had blo od cultures done yesterday. His flu swab was done was negative yesterday. He was found to be neutro penic, but had not had a true fever. This morning, the jaw pain and swelling was worse, so he re-presented to the Cancer Center and is now being admitted. His last chemo was 12 days ago; but he remains neutropenic. He is having low-grade fevers at home, w ith the highest reading at 99.0, although he is feeling very chilled, and feels like this breaks nice ly with Tylenol. He has no pain with swallowing. His daughter has been having flu-like symptoms for the last 2 days with fever up to 102. She is havi ng a flu swab done currently, and it is still pending. The patient has also had 2 days of significan t myalgias. PAST MEDICAL HISTORY: 1. AML. 2. PICC line deep venous thrombosis. 3. Gout. 4. Hypertension. ALLERGIES: No known drug allergies. SOCIAL HISTORY: No smoking. Social alcohol. He is , works as a windows software developer. He has 2 daughters. REVIEW OF SYSTEMS: Complete review of systems obtained. Review of systems is negative regarding con stitutional, HEENT, GI, cardiovascular, , hematology, skin, muscular, endocrine, psychiatric, excep t for positives as in HPI. FAMILY HISTORY: Negative for cancer. PHYSICAL EXAMINATION: GENERAL: Well-developed, well-nourished male, in no acute distress. VITAL SI GNS: Temperature is 36.6, pulse 100, blood pressure 119/92, saturating 97% on room air. EYES: Norm al conjunctivae. Pupils react light. ENT: Normal ears, nose. Hearing intact. Normal lips and dmitri th. Oropharynx is moist. His right cheek is significantly swollen just anterior to the ear, extendi ng down to the submandibular region. NECK: Trachea midline. No thyromegaly. CHEST: Normal effort . LUNGS: Clear to auscultation bilaterally. CARDIOVASCULAR: Regular rhythm. No murmur. No lower extremity edema. ABDOMEN: Soft, nontender. No hepatosplenomegaly. SKIN: Warm, dry, intact. No rash. MUSCULOSKELETAL: No cyanosis or clubbing. Strength 5/5 upper and lower extremities. NEUROLO GIC: Cranial nerves intact. Normal sensation to light touch. PSYCHIATRIC: Alert and oriented x3. Normal mood. Normal affect. Normal judgment. Normal memory. LABORATORY DATA: White count 0.9, hematocrit 24.3, platelets 153. Sodium 138, potassium 4.5, chlori de 104, bicarbonate 25, BUN 9, creatinine 1.1. Glucose 119. Influenza was negative yesterday. LFTs slightly elevated with an ALT of 81. Blood cultures done yesterday are still pending. Chest x-ray is negative. I spoke with Dr. Vital. He has a CT scan report from yesterday which sunny wed cervical lymphadenopathy, right greater than left. Largest lymph node on the right 1.6 cm. The parotid gland was normal-appearing. ASSESSMENT/PLAN: 1. Right facial swelling with cervical lymphadenopathy. Clinically I would suspect parotiditis; how ever, the CT scan yesterday did not demonstrate any parotid swelling. Given his neutropenia and low- grade fevers, I spoke with Dr. Emmanuel in Infectious Disease, who will consult. They are recommending empiric IV Zosyn at this time. This very well may be a viral illness. His flu swab was negative ye sterday; however, if he has recurrence of symptoms of fever, would consider repeat testing. Consider additional viral serologies per Infectious Disease. 2. Neutropenia. He had borderline low-grade fevers at home up to 99.0; but given localized findings discussed above, empiric antibiotics will be started. 3. Acute myelogenous leukemia. Follows with Dr. Box, currently on chemo. 4. PICC line-related deep venous thrombosis. PICC line is now discontinued. He is on subcutaneous Lovenox at full doses at home, as long as his platelet counts can tolerate it. His platelets, at thi s time, look good, so would continue Lovenox 100 mg subcu twice daily. 5. Gout. Continue allopurinol. CODE STATUS: Full. ADMISSION STATUS: Will admit to inpatient, as he is medically complex and anticipate greater than 2 midnights required for monitoring cultures to ensure no bacteremia involved. DVT PROPHYLAXIS: He is high risk, but already fully anticoagulated. /[id number]/MODL
[2016-03-24] MEDS: PIPERACILLIN/TAZO 4.5 GM/DEX 100 ML IV SCH ×2 (18:17→21:31)
[2016-03-24] MEDS: ENOXAPARIN 100 MG/ML SYR SC SCH (18:59)
--- NOTE | 2016-03-24 19:53 | GCON ---
[f rep st] CONSULTATION ONCOLOGY CONSULTATION NOTE. DATE OF CONSULTATION: 03/24/2016 HISTORY OF PRESENT ILLNESS: Thanh is a pleasant 45-year-old gentleman who was diagnosed with AML (inversion 16) in December of 2015. He has received initial induction in the standard 7+ 3 fashion. His initial induction course was complicated by typhlitis and neutropenic fever. The patient has received a total of 2 cycles of high-dose robbie-C consolidation. He was discharged on March 11, 2016 after completing his most recent cycle of high-dose robbie-C consolidation therapy. The patient was seen in the office setting yesterday. At that time, he noted a low-grade fever and chill overnight. He reports biting the inside of his right cheek in his sleep. It was somewhat painful. He had noted some neck swelling. A CT of the neck was performed on March 23. This revealed mild right cervical lymphadenitis with no evidence of soft tissue abscess. There was no evidence of acute sinusitis. The patient had another low-grade fever, mild headache and shaking chill overnight. Was seen in the clinic today, and is admitted for neutropenic fever. He also reports some mild hemorrhoidal pain, but otherwise feels well. His daughter has recently been ill with a viral infection. The patient did have an influenza swab done in the office yesterday which was negative. PAST MEDICAL HISTORY: 1. Recent diagnosis of acute myeloid leukemia as outlined above. 2. Prior vasectomy. SOCIAL HISTORY: The patient is . He lives in [facility]. He works as a technical support 1 software engineer. REVIEW OF SYSTEMS: As outlined above. Remainder of 10-point review of systems is otherwise negative. The patient specifically denies skin rash, nausea, vomiting, diarrhea. PHYSICAL EXAM: The patient is in no acute distress. Pupils equal, sclerae are nonicteric. Examination of the oropharynx reveals a small, 2-3 mm ulceration in the right posterior buccal mucosa with no significant surrounding induration. No evidence of dental abscess. The patient has mild generalized neck swelling with no clear palpable adenopathy. No supraclavicular or axillary adenopathy. HEART: Regular without murmur. LUNGS: Clear bilaterally with no wheeze, rhonchi, or crackles. No flank tenderness bilaterally. He does not have a central venous access device. He does have a peripheral IV in his left hand. ABDOMEN: Soft, nontender, nondistended with no organomegaly or mass. There is no evidence of perirectal abscess. On exam, he does have a small hemorrhoid. No extremity swelling or edema. No visible skin rash. He is alert, oriented and appropriate. CT results from yesterday as per HPI: CBC done in the office today: White count is 900, hemoglobin 8.2, hematocrit 24.3, platelet count is 153,000, absolute neutrophil count is 50, influenza swab done yesterday is negative. IMPRESSION: 1. Acute myeloid leukemia with inversion 16, status post initial induction and 2 cycles of high-dose robbie-C consolidation. 2. History of catheter related left upper extremity deep vein thrombosis ( patient was previously on Lovenox which was recently stopped due to low platelet count). 3. History of gout. 4. Pancytopenia secondary to #1. 5. Neutropenic fever. 6. Generalized lymphadenitis in the cervical region. Thanh is a pleasant 45-year-old gentleman who is undergoing consolidation treatment for acute myeloid leukemia. He is admitted with neutropenic fever. When seen this evening, he is nontoxic in appearance and generally doing well. I suspect he may have a viral process given the mild lymphadenitis. His flu swab was negative. He does have a small oral ulceration. Infectious Disease has recommended Zosyn as his initial antibiotic coverage which will be initiated at a dose of 3.75 g IV every 8 hours. The patient will continue on prophylactic acyclovir. I will resume his Lovenox at a therapeutic dose of 150 mg twice daily given that he has a normal platelet count and has a history of both superficial and deep venous thrombosis. We will send blood cultures, urine culture and a chest x-ray. He will be followed closely and his antibiotic coverage will be adjusted if a source of infection is identified. We will hold off on growth factor support given he is nontoxic and that we generally prefer to avoid this in patients undergoing treatment for acute myeloid leukemia. His questions were answered today. Total time for today's visit was approximately 50 minutes, of which greater than 50% was spent in counseling and care coordination. /[id number]/MODL MTDD
[2016-03-24] MEDS ORDERED: ENOXAPARIN 100 MG/ML SYR SC SCH (21:00)
[2016-03-24] MEDS ORDERED: ACYCLOVIR 400 MG TAB PO SCH (21:00)
[2016-03-24] MEDS: ACYCLOVIR 400 MG TAB PO SCH (21:31)
[2016-03-24] MEDS ORDERED: PIPERACILLIN/TAZO 3.375 GM/DEX 50 ML IV SCH (22:00)
[2016-03-24] MEDS ORDERED: MEROPENEM 1 GM in NS 100 ML IV SCH (22:00)
[2016-03-24 23:45] LABS: COLOR YELLOW; LEUKOCYTE ESTERASE,URINE NEGATIVE (NEGATIVE); NITRITE,URINE NEGATIVE (NEGATIVE)
[2016-03-25] MEDS: IBUPROFEN 600 MG TAB PO PRN ×4 (05:30→23:56)
[2016-03-25] MEDS: PIPERACILLIN/TAZO 4.5 GM/DEX 100 ML IV SCH ×3 (05:30→21:30)
[2016-03-25] MEDS: ENOXAPARIN 100 MG/ML SYR SC SCH ×2 (05:30→18:08)
[2016-03-25 05:32] LABS: ABSOLUTE NRBC COUNT 0.13 10^3/uL (0-0.01); ADD DIFF? YES; FRAGMENT RBC FLAG 0 (0-99); HEMATOCRIT 20.3 % (40.0-51.0); LEFT SHIFT FLG 30 (0-99); LIPEMIA HEMOLYSIS FLAG 80 (0-99); MEAN CELL HEMOGLOBIN 31.9 pg (27.9-34.1); MEAN CELL HEMOGLOBIN CONCENTR. 33.5 g/dL (32.4-36.7); MEAN CELL VOLUME 95.3 fL (81.5-99.8); MEAN PLATELET VOLUME 9.8 fL (8.7-11.7); PLATELET CLUMPS FLAG 0 (0-99); PLATELET COUNT 133 10^3/uL (150-400); RED BLOOD CELL COUNT 2.13 10^6/uL (4.40-6.38); RED CELL DISTRIBUTION WIDTH 16.8 % (11.5-15.2)
[2016-03-25 05:35] LABS: ADD MORPH? NO; ADD SCAN? NO; ATYPICAL LYMPHOCYTE FLAG 160 (0-99); HEMOGLOBIN 6.8 g/dL (13.7-17.5); NRBC-AUTO% 9.2 % (0.0-0.2)
[2016-03-25 05:56] LABS: ALANINE AMINOTRANSFERASE 66 IU/L (21-72); ALBUMIN 2.7 g/dL (3.5-5.0); ALKALINE PHOSPHATASE 55 IU/L (38-126); ANION GAP 8 mEq/L (8-16); ASPARTATE AMINOTRANSFERASE 22 IU/L (17-59); BILIRUBIN,TOTAL 0.4 mg/dL (0.1-1.4); BILIRUBIN-CONJUGATED 0.2 mg/dL (0.0-0.5); BILIRUBIN-UNCONJUGATED 0.2 mg/dL (0.0-1.1); CALCIUM 8.8 mg/dL (8.5-10.4); CARBON DIOXIDE 26 mEq/l (22-31); CHLORIDE 109 mEq/L (97-110); CREATININE 1.3 mg/dL (0.7-1.3); GLOMERULAR FILTRATION RATE 59; GLUCOSE 94 mg/dL (70-100); POTASSIUM 4.7 mEq/L (3.5-5.2); SODIUM 143 mEq/L (134-144); TOTAL PROTEIN 5.5 g/dL (6.3-8.2)
[2016-03-25 06:21] LABS: GIANT PLATELETS PRESENT; MACROCYTES 1+; MICROCYTES 1+; PLATELET ESTIMATE DECREASED (ADEQ); POLYCHROMASIA 1+
[2016-03-25] MEDS ORDERED: ENOXAPARIN 40 MG/0.4 ML SYR SC SCH (09:00)
[2016-03-25] MEDS: ACYCLOVIR 400 MG TAB PO SCH ×2 (09:03→21:30)
[2016-03-25] MEDS: ALLOPURINOL 300 MG TAB PO SCH (09:03)
[2016-03-25] MEDS: FLUCONAZOLE 100 MG TAB PO SCH (09:03)
--- NOTE | 2016-03-25 11:06 | PCMIDPN ---
Assessment/Plan: Assessment: Neutropenic fever status post consolidation therapy for AML. Patient presented with swelling in the mandibular and cervical area bilaterally right greater than left. CT scan at [facility] revealed lymphadenitis on the right cervical chain. Patient had symptoms of subjective fevers and chills. So far here he has not had a measurable fever. However he is significantly neutropenic. Covered with Zosyn and fluconazole as well as acyclovir. His young daughter is being evaluated for influenza currently. Will place the patient on also temperature 75 mg p.o. twice daily empirically despite the fact he had a negative PCR swab. Plan: 1. Continue IV Zosyn, fluconazole and acyclovir. 2. Start also time of year 75 mg p.o. twice daily x5 days. 3. Follow white blood cell count and absolute neutrophil count as well as his clinical course. 03/25/16 11:03 Subjective: Patient is resting in his hospital room. He states that the pain in his right neck as well as his headache is significantly better. He still has swelling bilaterally but the left side is much less swollen. Denies any subjective fevers sweats or chills since he was admitted. Objective: Zosyn #1 Fluconazole #1 Acyclovir #1 Vital Signs Temp Pulse Resp BP Pulse Ox 36.9 C 82 16 110/75 96 03/25/16 07:30 03/25/16 07:30 03/25/16 07:30 03/25/16 07:30 03/25/16 07:30 Laboratory Results 03/25/16 05:10 03/25/16 05:10 03/24/16 03/25/16 03/26/16 05:59 05:59 05:59 Intake Total 640 Balance 640 - Physical Exam General Appearance: WD/WN, alert, no apparent distress, non-toxic Respiratory: lungs clear, normal breath sounds, No respiratory distress Cardiac/Chest: regular rate, rhythm, No tachycardia Skin: normal color, warm/dry, No rash Neuro/Psych: alert, normal mood/affect, oriented x 3 ICD10 Worksheet Patient Problems: Problems Problem Status Diagnosed AML (acute myeloblastic leukemia) Acute Febrile neutropenia Acute Pancytopenia due to antineoplastic chemotherapy Acute Typhlitis Acute
[2016-03-25] MEDS: OSELTAMIVIR PHOSPHATE 75 MG CAP PO SCH (16:03)
--- NOTE | 2016-03-25 17:20 | HOSPPROG ---
Hospitalist Progress Note Assessment/Plan: DIAGNOSIS: # Neutropenic fever # Sialadenitis # Pancytopenia of chemotherapy and leukemia # AML, inversion 16, status post induction chemotherapy now receiving his consolidation therapies # History of to flatus during his induction therapy PLANS: - continue current antibiotics and antivirals and follow cultures -I will discuss further with Dr. Dayo Emmanuel who has seen the patient earlier today -Follow cultures closely - I have reviewed the patient's case in the clinical management in detail with Dr. Nita Caceres SUBJECTIVE: patient's headache is decreased today but he has increase in swelling at his right cheek area. This is somewhat uncomfortable and is making his speech a little bit slurred Less chills today OBJECTIVE Vitals reviewed: afebrile here so far with stable vitals Exam: alert oriented right parotid gland swelling is palpable with mild tenderness, I cannot feel a stone, the duct area appears slightly swollen ; his teeth and gums look good skin warm dry color ok resps not labored lungs clear BSs heart regular abd soft nondistended nontender, bowel sounds present limbs warm, no edema iv site ok Objective: Vital Signs Temp Pulse Resp BP Pulse Ox 36.9 C 103 H 15 146/108 H 99 03/25/16 16:19 03/25/16 16:19 03/25/16 16:19 03/25/16 16:19 03/25/16 16:19 Laboratory Results 03/25/16 05:10 03/25/16 05:10 03/24/16 03/25/16 03/26/16 06:59 06:59 06:59 Intake Total 640 550 Balance 640 550 ICD10 Worksheet Patient Problems: Problems Problem Status Diagnosed AML (acute myeloblastic leukemia) Acute Febrile neutropenia Acute Pancytopenia due to antineoplastic chemotherapy Acute Typhlitis Acute
[2016-03-26] MEDS: PIPERACILLIN/TAZO 4.5 GM/DEX 100 ML IV SCH ×3 (05:26→21:59)
[2016-03-26] MEDS: IBUPROFEN 600 MG TAB PO PRN ×4 (05:26→22:59)
[2016-03-26] MEDS: ENOXAPARIN 100 MG/ML SYR SC SCH ×2 (05:26→18:20)
[2016-03-26 06:21] LABS: ABSOLUTE NRBC COUNT 0.24 10^3/uL (0-0.01); ADD DIFF? YES; FRAGMENT RBC FLAG 0 (0-99); HEMATOCRIT 21.2 % (40.0-51.0); LEFT SHIFT FLG 70 (0-99); LIPEMIA HEMOLYSIS FLAG 80 (0-99); MEAN CELL HEMOGLOBIN 31.8 pg (27.9-34.1); MEAN CELL VOLUME 96.4 fL (81.5-99.8); MEAN PLATELET VOLUME 9.6 fL (8.7-11.7); PLATELET CLUMPS FLAG 10 (0-99); PLATELET COUNT 236 10^3/uL (150-400); RED CELL DISTRIBUTION WIDTH 16.7 % (11.5-15.2)
[2016-03-26 06:35] LABS: ANION GAP 9 mEq/L (8-16); CALCIUM 8.5 mg/dL (8.5-10.4); CARBON DIOXIDE 24 mEq/l (22-31); CHLORIDE 108 mEq/L (97-110); CREATININE 1.3 mg/dL (0.7-1.3); GLOMERULAR FILTRATION RATE 59; GLUCOSE 100 mg/dL (70-100); SODIUM 141 mEq/L (134-144)
[2016-03-26 06:54] LABS: ADD MORPH? NO; ADD SCAN? NO; ATYPICAL LYMPHOCYTE FLAG 100 (0-99); NRBC-AUTO% 13.3 % (0.0-0.2)
[2016-03-26 07:42] LABS: GIANT PLATELETS PRESENT; MACROCYTES 1+; MICROCYTES 1+; PLATELET ESTIMATE ADEQUATE (ADEQ); POLYCHROMASIA 2+
[2016-03-26] MEDS: OSELTAMIVIR PHOSPHATE 75 MG CAP PO SCH ×2 (08:29→18:20)
[2016-03-26] MEDS: ALLOPURINOL 300 MG TAB PO SCH (08:29)
[2016-03-26] MEDS: ACYCLOVIR 400 MG TAB PO SCH ×2 (08:29→21:59)
[2016-03-26] MEDS: FLUCONAZOLE 100 MG TAB PO SCH (08:29)
--- NOTE | 2016-03-26 10:53 | HOSPPROG ---
Hospitalist Progress Note Assessment/Plan: DIAGNOSIS: # Neutropenic fever # Parotitis # Pancytopenia of chemotherapy and leukemia # AML, inversion 16, status post induction chemotherapy now receiving his consolidation therapies # History of to flatus during his induction therapy PLANS: -continue current antibiotics and antivirals and follow cultures -Follow cultures closely; mom serology pending -follow cell counts closely; his hemoglobin is low but he is tolerating well will not order transfusion at this time, will review with Dr. Caceres -I have visited the patient together with Dr. Dayo Emmanuel and discussed his case today. SUBJECTIVE: Headache is less today Parotid swelling on right is unchanged and he is still sore and tender there No chills since yesterday morning OBJECTIVE Vitals reviewed: No fever, some occasional mild tachycardia, blood pressures and respirations normal Exam: alert oriented right parotid gland swelling is unchanged from yesterday, I cannot feel a stone , again the duct area appears slightly swollen, no gingivitis or dental abnormalities skin warm dry color ok, no rash or other concerning skin lesions resps not labored lungs clear BSs heart regular abd soft nondistended nontender, bowel sounds present limbs warm, no edema iv site ok I reviewed with Dr. Emmanuel who today reviewed the outpatient CT scan with the radiologist. There was mild parotid swelling bilaterally but no evidence of dental infection or other abscesses. There were no salivary stones Objective: Vital Signs Temp Pulse Resp BP Pulse Ox 36.6 C 87 16 111/79 94 03/26/16 05:41 03/26/16 05:41 03/26/16 05:41 03/26/16 05:41 03/26/16 05:41 Laboratory Results 03/26/16 05:44 03/26/16 05:44 03/25/16 03/26/16 03/27/16 06:59 06:59 06:59 Intake Total 640 1200 Balance 640 1200 ICD10 Worksheet Patient Problems: Problems Problem Status Diagnosed AML (acute myeloblastic leukemia) Acute Febrile neutropenia Acute Pancytopenia due to antineoplastic chemotherapy Acute Typhlitis Acute
--- NOTE | 2016-03-26 16:15 | PCMIDPN ---
Assessment/Plan: Assessment: Neutropenic fever status post consolidation therapy for AML. Patient presented with swelling in the mandibular and cervical area bilaterally right greater than left. CT scan at [facility] revealed lymphadenitis on the right cervical chain. Patient had symptoms of subjective fevers and chills. So far here he has not had a measurable fever. However he is significantly neutropenic although his counts have recovered slightly the last 24 hours. Covered with Zosyn and fluconazole as well as acyclovir. His young daughter is being evaluated for influenza currently. Will place the patient on Tamiflu 75 mg p.o. twice daily empirically despite the fact he had a negative PCR swab. Plan: 1. Continue IV Zosyn, fluconazole and acyclovir. 2. Start Tamiflu 75 mg p.o. twice daily x5 days. 3. Follow white blood cell count and absolute neutrophil count as well as his clinical course. Subjective: Patient is resting in his hospital bed. present. No new complaints. Objective: Acyclovir # 2 Fluconazole # 2 Tamiflu # 1 Zosyn # 2 Vital Signs Temp Pulse Resp BP Pulse Ox 36.4 C 94 17 118/90 H 98 03/26/16 11:05 03/26/16 11:05 03/26/16 11:05 03/26/16 11:05 03/26/16 11:05 Laboratory Results 03/26/16 05:44 03/26/16 05:44 03/25/16 03/26/16 03/27/16 05:59 05:59 05:59 Intake Total 640 1200 Balance 640 1200 - Physical Exam General Appearance: WD/WN, alert, no apparent distress, non-toxic EENT: other (Continued facial and parotid area swelling right greater than left) Respiratory: lungs clear, normal breath sounds, No respiratory distress Cardiac/Chest: regular rate, rhythm, No tachycardia Skin: normal color, warm/dry, No rash Neuro/Psych: alert, normal mood/affect, oriented x 3 ICD10 Worksheet Patient Problems: Problems Problem Status Diagnosed AML (acute myeloblastic leukemia) Acute Febrile neutropenia Acute Pancytopenia due to antineoplastic chemotherapy Acute Typhlitis Acute
--- NOTE | 2016-03-26 17:49 | SOAPPROG ---
SOAP Progress Note Assessment/Plan: Assessment: 1) Neutropenic fever-afeb on Zosyn, acyclovir and fluconazole. Cultures negative. Exam still notable for bilateral swelling around his cheeks/jaw. CT with right cervical adenitis. Possible flu exposure. Clinically improving. 2) AML-with inversion 16, s/p induction and second cycle of consolidation 3) Pancytopenia-anemic, but not very symptomatic. No RBC transfusion today, but possibly in next few days. 4) History of LUE DVT-on therapeutic lovenox Plan 1) continue antibiotics, start tamiflu per ID 2) All blood products should be irradiated, possible RBC transfusion in the next few days Subjective: feels better, but still feels his cheeks are swollen Objective: Vital Signs Temp Pulse Resp BP Pulse Ox 36.9 C 78 17 112/84 H 97 03/26/16 16:00 03/26/16 16:00 03/26/16 16:00 03/26/16 16:00 03/26/16 16:00 Laboratory Results 03/26/16 05:44 03/26/16 05:44 03/25/16 03/26/16 03/27/16 05:59 05:59 05:59 Intake Total 640 1200 Balance 640 1200 Physical Exam - Physical Exam General Appearance: alert, no apparent distress EENT: other (swelling over both cheeks at the angle of the jaw, no erythema) Neck: supple Respiratory: lungs clear Abdomen: non-tender, soft Extremities: No pedal edema ICD10 Worksheet Patient Problems: Problems Problem Status Diagnosed AML (acute myeloblastic leukemia) Acute Febrile neutropenia Acute Pancytopenia due to antineoplastic chemotherapy Acute Typhlitis Acute
[2016-03-27 06:17] LABS: ABSOLUTE NRBC COUNT 0.42 10^3/uL (0-0.01); ADD DIFF? YES; FRAGMENT RBC FLAG 0 (0-99); HEMATOCRIT 22.5 % (40.0-51.0); HEMOGLOBIN 7.2 g/dL (13.7-17.5); LEFT SHIFT FLG 90 (0-99); LIPEMIA HEMOLYSIS FLAG 80 (0-99); MEAN CELL HEMOGLOBIN 31.3 pg (27.9-34.1); MEAN CELL VOLUME 97.8 fL (81.5-99.8); MEAN PLATELET VOLUME 9.6 fL (8.7-11.7); PLATELET CLUMPS FLAG 10 (0-99); PLATELET COUNT 299 10^3/uL (150-400)
[2016-03-27 06:25] LABS: ANION GAP 6 mEq/L (8-16); CALCIUM 8.7 mg/dL (8.5-10.4); CARBON DIOXIDE 26 mEq/l (22-31); CHLORIDE 111 mEq/L (97-110); CREATININE 1.3 mg/dL (0.7-1.3); GLOMERULAR FILTRATION RATE 59; GLUCOSE 90 mg/dL (70-100); POTASSIUM 4.4 mEq/L (3.5-5.2); SODIUM 143 mEq/L (134-144)
[2016-03-27 06:27] LABS: ADD MORPH? NO; ADD SCAN? NO; ATYPICAL LYMPHOCYTE FLAG 140 (0-99); NRBC-AUTO% 13.9 % (0.0-0.2)
[2016-03-27] MEDS: ENOXAPARIN 100 MG/ML SYR SC SCH ×2 (07:16→18:15)
[2016-03-27] MEDS: PIPERACILLIN/TAZO 4.5 GM/DEX 100 ML IV SCH ×3 (07:16→22:01)
[2016-03-27 07:20] LABS: PLATELET ESTIMATE ADEQUATE (ADEQ); POLYCHROMASIA 1+
[2016-03-27 07:21] LABS: HYPOCHROMIA 1+
[2016-03-27] MEDS: ALLOPURINOL 300 MG TAB PO SCH (09:18)
[2016-03-27] MEDS: OSELTAMIVIR PHOSPHATE 75 MG CAP PO SCH ×2 (09:18→18:15)
[2016-03-27] MEDS: FLUCONAZOLE 100 MG TAB PO SCH (09:18)
[2016-03-27] MEDS: ACYCLOVIR 400 MG TAB PO SCH ×2 (09:18→20:13)
[2016-03-27] MEDS: IBUPROFEN 600 MG TAB PO PRN ×3 (09:21→20:13)
--- NOTE | 2016-03-27 10:16 | HOSPPROG ---
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 SUBJECTIVE: Still with some mild headache and some mild discomfort at right jaw and parotid gland but these are improving again today No cough or respiratory symptoms, abdominal or anorectal symptoms, no rashes, no joint pains No other new symptoms OBJECTIVE Vitals reviewed: No fever, some occasional mild tachycardia persists, blood pressures and respirations normal Exam: alert oriented right parotid gland swelling is slightly better than yesterday, I cannot feel a stone, still no gingivitis or dental abnormalities skin warm dry color ok, no rash or other concerning skin lesions resps not labored lungs clear BSs heart regular abd soft nondistended nontender, bowel sounds present limbs warm, no edema iv site ok Laboratory data: White blood cell count remains low but is improving and now with 240 neutrophils Hemoglobin slightly improved at 7.2 Mumps serology still pending expect several more days before that is back Objective: Vital Signs Temp Pulse Resp BP Pulse Ox 36.8 C 78 16 119/79 92 03/27/16 08:00 03/27/16 08:00 03/27/16 08:00 03/27/16 08:00 03/27/16 08:00 Laboratory Results 03/27/16 05:38 03/27/16 05:38 03/26/16 03/27/16 03/28/16 06:59 06:59 06:59 Intake Total 1200 1240 Balance 1200 1240 ICD10 Worksheet Patient Problems: Problems Problem Status Diagnosed AML (acute myeloblastic leukemia) Acute Febrile neutropenia Acute Pancytopenia due to antineoplastic chemotherapy Acute Typhlitis Acute
--- NOTE | 2016-03-27 13:54 | SOAPPROG ---
SOAP Progress Note Assessment/Plan: Assessment/Plan: 45 yo gentleman w AML (inv 16) who p/w neutropenic fever s/p 2nd cycle of consolidation 1. Neutropenic fever - on acyclovir, zosyn, and fluconazole, and empiric tamiflu appreciate ID has been afebrile for a t least a few days Still neutropenic but monocytes coming back 2. Cervical adenitis on recent CT - treating empirically; Sx improved 3. AML - s/p C2 of consolidation 4. Pancytopenia - reviewed counts today; no indication to transfuse; will monitor Pt requires irradiated, leuk reduced blood products 5. Previous DVT - on lovenox 03/27/16 13:54 Subjective: No acute events; pt reports everything better Denies new Sx Objective: Vital Signs Temp Pulse Resp BP Pulse Ox 37.2 C 102 H 18 125/74 H 97 03/27/16 12:16 03/27/16 12:16 03/27/16 12:16 03/27/16 12:16 03/27/16 12:16 Laboratory Results 03/27/16 05:38 03/27/16 05:38 03/26/16 03/27/16 03/28/16 05:59 05:59 05:59 Intake Total 1200 1240 Balance 1200 1240 Vitals reviewed HEENT - mild swelling of R parotid gland; oral pharynx clear CV - tachy Chest - CTA bilaterally Abd - soft, NT, BS+ Ext - no edema ICD10 Worksheet Patient Problems: Problems Problem Status Diagnosed AML (acute myeloblastic leukemia) Acute Febrile neutropenia Acute Pancytopenia due to antineoplastic chemotherapy Acute Typhlitis Acute
--- NOTE | 2016-03-27 18:27 | PCMIDPN ---
Assessment/Plan: Assessment/Plan: * Neutropenic fever with cervical lymphadenitis: Lymphadenitis has resolved clinically. May be showing signs of early neutrophil recovery. Continue Zosyn and Tamiflu (Tamiflu given daughter had viral syndrome without available influenza results). Hope can transition to oral fluoroquinolone as neutrophils recover. Will follow up mumps antibodies as available. Other considerations would be odontogenic source and have advised patient have dental examination after hospital discharge. Toxoplasmosis also consideration for cervical lymphadenitis but repeated a resolution argues against this. 03/27/16 18:24 Subjective: Feels clinically improved. Able to open mouth better. Less jaw swelling and neck tenderness resolved. Does have cats at home. Objective: Vital Signs Temp Pulse Resp BP Pulse Ox 37.2 C 102 H 18 125/74 H 97 03/27/16 12:16 03/27/16 12:16 03/27/16 12:16 03/27/16 12:16 03/27/16 12:16 Laboratory Results 03/27/16 05:38 03/27/16 05:38 03/26/16 03/27/16 03/28/16 05:59 05:59 05:59 Intake Total 1200 1240 200 Balance 1200 1240 200 Zosyn # 3 Tamiflu # 2 Fluconazole # 3 Acyclovir # 3 Blood cultures x4 sets no growth Mumps antibodies pending - Physical Exam General Appearance: alert, no apparent distress EENT: pharynx normal, other (No parotid swelling or tenderness), No scleral icterus, No conjunctival petechiae Respiratory: lungs clear, No respiratory distress Neck: supple, No lymphadenopathy (L), No lymphadenopathy (R) Cardiac/Chest: regular rate, rhythm, No systolic murmur ICD10 Worksheet Patient Problems: Problems Problem Status Diagnosed AML (acute myeloblastic leukemia) Acute Febrile neutropenia Acute Pancytopenia due to antineoplastic chemotherapy Acute Typhlitis Acute
[2016-03-28] MEDS: ENOXAPARIN 100 MG/ML SYR SC SCH (05:27)
[2016-03-28] MEDS: PIPERACILLIN/TAZO 4.5 GM/DEX 100 ML IV SCH ×2 (05:27→14:01)
[2016-03-28 07:45] LABS: ABSOLUTE NRBC COUNT 0.74 10^3/uL (0-0.01); ADD DIFF? YES; ADD MORPH? YES; ADD SCAN? YES; FRAGMENT RBC FLAG 0 (0-99); HEMATOCRIT 21.8 % (40.0-51.0); LIPEMIA HEMOLYSIS FLAG 80 (0-99); MEAN CELL HEMOGLOBIN 31.2 pg (27.9-34.1); MEAN CELL HEMOGLOBIN CONCENTR. 31.7 g/dL (32.4-36.7); MEAN CELL VOLUME 98.6 fL (81.5-99.8); MEAN PLATELET VOLUME 9.7 fL (8.7-11.7); PLATELET CLUMPS FLAG 0 (0-99); PLATELET COUNT 372 10^3/uL (150-400); RED BLOOD CELL COUNT 2.21 10^6/uL (4.40-6.38); RED CELL DISTRIBUTION WIDTH 17.9 % (11.5-15.2)
[2016-03-28 07:47] LABS: ATYPICAL LYMPHOCYTE FLAG 140 (0-99); HEMOGLOBIN 6.9 g/dL (13.7-17.5); LEFT SHIFT FLG 140 (0-99); NRBC-AUTO% 17.7 % (0.0-0.2)
[2016-03-28 07:51] LABS: ANION GAP 8 mEq/L (8-16); CALCIUM 8.4 mg/dL (8.5-10.4); CARBON DIOXIDE 25 mEq/l (22-31); CHLORIDE 111 mEq/L (97-110); CREATININE 1.3 mg/dL (0.7-1.3); GLOMERULAR FILTRATION RATE 59; GLUCOSE 83 mg/dL (70-100); POTASSIUM 4.1 mEq/L (3.5-5.2); SODIUM 144 mEq/L (134-144)
[2016-03-28 08:29] VITALS: RESP 16; O2SAT 96
[2016-03-28 08:39] LABS: MACROCYTES 1+; MICROCYTES 1+; PLATELET ESTIMATE ADEQUATE (ADEQ); POLYCHROMASIA 2+
[2016-03-28] MEDS: OSELTAMIVIR PHOSPHATE 75 MG CAP PO SCH (09:15)
[2016-03-28] MEDS: FLUCONAZOLE 100 MG TAB PO SCH (09:15)
[2016-03-28] MEDS: ALLOPURINOL 300 MG TAB PO SCH (09:15)
[2016-03-28] MEDS: ACYCLOVIR 400 MG TAB PO SCH (09:15)
--- NOTE | 2016-03-28 12:19 | SOAPPROG ---
SOAP Progress Note Assessment/Plan: Assessment/Plan: 45 yo gentleman w AML (inv 16) who p/w neutropenic fever s/p 2nd cycle of consolidation 1. Neutropenic fever - on acyclovir, zosyn, and fluconazole, and empiric tamiflu appreciate ID has been afebrile for >48 hours and ANC now >500 Think can transition to po abx by tomorrow and then home Will need f/u w Dr Box this Sunday w CBC 2. Cervical adenitis on recent CT - treating empirically; Sx improved 3. AML - s/p C2 of consolidation 4. Pancytopenia - reviewed counts today; pt would like to hold off on RBC transfusion; will monitor Pt requires irradiated, leuk reduced blood products 5. Previous DVT - on lovenox 03/28/16 12:16 Subjective: No acute events Pt feels overall better w decreased swelling and decreased LIND thinks he feels a sore throat in last minute of talking Objective: Vital Signs Temp Pulse Resp BP Pulse Ox 36.7 C 89 16 123/85 H 96 03/28/16 08:27 03/28/16 08:27 03/28/16 08:27 03/28/16 08:27 03/28/16 08:27 Laboratory Results 03/28/16 05:27 03/28/16 05:27 03/27/16 03/28/16 03/29/16 05:59 05:59 05:59 Intake Total 1240 1700 Balance 1240 1700 gen - NAD HEENT - OP clear; no erythema or exudate in post OP CV - RRR Chest - CTAB Abd - soft, NT, ND, BS+ Ext - no edema, no rash ICD10 Worksheet Patient Problems: Problems Problem Status Diagnosed AML (acute myeloblastic leukemia) Acute Febrile neutropenia Acute Pancytopenia due to antineoplastic chemotherapy Acute Typhlitis Acute
[2016-03-28 12:38] VITALS: BP 126/89; PULSE 84; TEMP 98.6
--- NOTE | 2016-03-28 14:59 | PCMIDPN ---
Assessment/Plan: Assessment/Plan: * Neutropenic fever with cervical lymphadenitis: Lymphadenitis has resolved clinically jaw pain significantly decreased. ANC now greater than 500. Think can transition to oral levofloxacin and Augmentin x7 days. Overall clinical course less suggestive of influenza therefore were stop Tamiflu. Continue acyclovir times 5-7 days post ANC recovery. Okay from ID perspective for hospital discharge. Patient has my card and advised to notify our office for recurrent fever, jaw pain, or neck pain. Findings and plan reviewed with patient, , and and Dr. Ugarte. 03/28/16 14:56 Subjective: Patient feels significantly improved. Minimal right jaw pain present. Objective: Vital Signs Temp Pulse Resp BP Pulse Ox 37.0 C 84 16 126/89 H 96 03/28/16 12:36 03/28/16 12:36 03/28/16 12:36 03/28/16 12:36 03/28/16 12:36 Laboratory Results 03/28/16 05:27 03/28/16 05:27 03/27/16 03/28/16 03/29/16 05:59 05:59 05:59 Intake Total 1240 1700 Balance 1240 1700 Zosyn #4 Fluconazole #4 Acyclovir #4 Tamiflu # 3 Blood cultures no growth Mumps antibodies pending - Physical Exam General Appearance: alert, no apparent distress EENT: pharynx normal, other (No swelling or tenderness over parotids), No scleral icterus Respiratory: lungs clear, No respiratory distress Neck: supple, other (Nontender anteriorly), No lymphadenopathy (L), No lymphadenopathy (R) Cardiac/Chest: regular rate, rhythm, systolic murmur (2/6 throughout) ICD10 Worksheet Patient Problems: Problems Problem Status Diagnosed AML (acute myeloblastic leukemia) Acute Febrile neutropenia Acute Pancytopenia due to antineoplastic chemotherapy Acute Typhlitis Acute
[2016-03-28 15:09] LABS: MUMPS IGG INDEX VALUE 1.8 (()); MUMPS IGM ANTIBODY NEGATIVE (Negative); MUMPS IGM INDEX VALUE 0.17 (0.00-0.79)
--- NOTE | 2016-03-28 16:31 | PDDCSUM ---
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 No other focal symptoms or findings. Cultures were all neg, flu neg, and with a local outbreak of mumps, he has pending mumps titers. He was admitted and started on antibacterials as he is neutropeninc, and also started on acyclovir. He has had gradual resolution of his presenting symptoms. No fevers here. His wbc is now rising well and has pmn's > 800. He is stable for DC to home. His Hg is at 7 and stable and he is tolerating it well; he wished to avoid transfusion which was not given. FOLLOW UP: Dr Box in 3 days MEDICATION CHANGES: increase of levaquin to 750/day addition of augmentin 875 bid
== END 2016-03-28 16:16 | disposition home or self-care (01) | DRG 809 ==
LOC: F1N 15:29
PROVIDERS: ADMIT Internal Medicine; ATTEND Internal Medicine
DX: D70.9 Neutropenia, unspecified (principal); C92.00 Acute myeloblastic leukemia, not having achieved remission; D61.810 Antineoplastic chemotherapy induced pancytopenia; I88.9 Nonspecific lymphadenitis, unspecified; K11.20 Sialoadenitis, unspecified; I10 Essential (primary) hypertension; Z86.718 Personal history of other venous thrombosis and embolism
CPT/HCPCS: 86735-90; J1650; J2543

== ENCOUNTER 2016-05-25 11:18 | Inpatient (IN) | payer OTHER ==
[2016-05-25] MEDS ORDERED: PROMETHAZINE HCL 25 MG TAB PO PRN (12:10)
[2016-05-25] MEDS ORDERED: ACETAMINOPHEN 325 MG TAB PO PRN (12:10)
[2016-05-25] MEDS ORDERED: ONDANSETRON DISINTEGRATING 4 MG TAB PO PRN (12:10)
[2016-05-25] MEDS ORDERED: ONDANSETRON 4 MG/2 ML VIAL IVP PRN (12:10)
[2016-05-25] MEDS ORDERED: ONDANSETRON 4 MG/2 ML VIAL IVP SCH (12:30)
[2016-05-25] MEDS ORDERED: CYTARABINE IV SCH (13:00)
[2016-05-25] MEDS ORDERED: NS IV SCH (13:00)
--- NOTE | 2016-05-25 13:56 | PDGENHP ---
History and Physical - Chief Complaint Scheduled inpatient chemotherapy - History of Present Illness Primary oncologist: Dr. Box HPI: 46-year-old male presenting for scheduled inpatient chemotherapy, reporting he has recently been asymptomatic and feeling well going into this admission. That being said, since his last cycle he has had intermittent headache characterized as global with associated dizziness and duration approximately 1 week. The symptoms have resolved and he has otherwise been taking all of his home medications prior to this presentation. He did have a PICC line placed today and had some bleeding located in his right antecubital fossa at the insertion site but this was alleviated by applying pressure. He has not taken his Xarelto dosage on the day of this presentation. History Information - Allergies/Home Medication List Allergies/Adverse Reactions: No Known Allergies Allergy (Unverified 10/02/12 15:24) Home Medications: Allopurinol [Allopurinol 300 MG (RX)] 300 mg PO DAILY 02/07/16 [Last Taken 05/24] Lisinopril [Zestril 10 mg (*)] 10 mg PO DAILY 05/25/16 [Last Taken 05/24/16] Rivaroxaban [Xarelto] 20 mg PO DAILY 05/25/16 [Last Taken 05/24/16] I have personally reviewed and updated: family history, medical history, social history, surgical history - Past Medical History Additional medical history: AML with inversion 16. 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 Gout. Hypertension. Neutropenic fever since last cycle - Surgical History Additional surgical history: Vastectomy - Family History Additional family history: No malignancies, no coronary artery disease - Social History Smoking Status: Never smoked Alcohol Use: Occasionally Drug Use: None Additional social history: Independent in his ADLs Review of Systems ROS: 10pt was reviewed & negative except for what was stated in HPI & below Physical Exam Temp Pulse Resp BP Pulse Ox 36.8 C 74 16 132/90 H 96 05/25/16 11:54 05/25/16 11:54 05/25/16 11:54 05/25/16 13:45 05/25/16 11:54 Constitutional: no apparent distress, appears nourished, not in pain Eyes: PERRL, anicteric sclera, EOMI Ears, Nose, Mouth, Throat: moist mucous membranes, hearing normal, ears appear normal, no oral mucosal ulcers, No oral thrush Cardiovascular: regular rate and rhythym, no murmur, rub, or gallop, No edema Respiratory: no respiratory distress, no rales or rhonchi, clear to auscultation Gastrointestinal: normoactive bowel sounds, soft, non-tender abdomen, no palpable masses Skin: warm, normal color, no rashes or abrasions, no fluctuance, no induration, No mottled Neurologic: AAOx3, No facial droop Psychiatric: interacting appropriately, not anxious, not encephalopathic, thought process linear Assessment & Plan Assessment: 46-year-old male presents for 3rd consolidation with high-dose cytarabine in the setting of AML Plan: 1. AML. Review of outside records, notably Clinic note from Dr. 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 Box -antiemetics as needed none -monitor cell counts -salt/soda rinses, monitor for thrush 2. History of PICC line associated DVT. Chronically on Xarelto, holding today given his PICC line placement, will reassess whether he can safely reinitiate tomorrow if he does not have any bleeding from the PICC line site, has a new PICC line placed in the contralateral arm 3. Hypertension. Chronic, holding lisinopril while he is on chemotherapy 4. Gout. Chronic, continue allopurinol Diet. Regular Prophylaxis. High risk patient, currently on Xarelto Code. Full Disposition. Anticipated discharge is uncertain this time, anticipated length stay is greater than 48 hours warranting inpatient admission status for inpatient high-dose cytarabine for AML consolidation therapy.
[2016-05-25] MEDS: ALLOPURINOL 300 MG TAB PO SCH (14:05)
[2016-05-25] MEDS: prednisoLONE ACET 1% 5 ML OPHT.BTL EACHEYE SCH ×2 (14:05→18:25)
--- NOTE | 2016-05-25 14:21 | GCON ---
[f rep st] CONSULTATION INPATIENT ONCOLOGY CONSULTATION DATE OF CONSULTATION: 05/25/2016 REFERRING PHYSICIAN: Dinesh Rosales MD REASON FOR CONSULTATION: Third cycle consolidation chemotherapy for acute myeloid leukemia. HISTORY OF PRESENT ILLNESS: The patient is a 46-year-old man with a history of acute myeloid leukem ia with inv(16) in first remission. He presented in November 2015 with pancytopenia. A biopsy of th e bone marrow showed 50% myeloid blasts, and FISH showed inv(16). He underwent induction chemothera py in December with 7 and 3 and went into remission. He then received 2 cycles of consolidation jesus motherapy with high-dose cytarabine in January and February. The 1st cycle was complicated by a lef t axillary DVT associated with a PIC, and the 2nd was complicated by a neutropenic period and inflam mation of the parotid gland. A followup bone marrow biopsy indicated a very low level of residual d isease by PCR, and I referred him for transplant evaluation. He was seen at the [facility] by Dr. Dinesh Dupree and Casimiro Davila and also at the [facility] by Dr. Lazaro Tillman. Repeat bone marrow biopsy using a flow type cytometric technique for evaluation of mini mal residual disease was normal, and the patient did not have a well-matched stem cell donor. There fore, we elected to proceed with a 3rd cycle of consolidation with cytarabine. The patient, today, is admitted for that purpose. He feels entirely well and is not having any prob lems. PAST MEDICAL HISTORY: 1. AML as described above. 2. History of gout affecting the right toe. 3. Left axillary DVT. He is currently on Xarelto. 4. Hypertension. CURRENT MEDICATIONS: Include acyclovir, allopurinol, and Xarelto 20 mg daily. ALLERGIES: He has no known drug allergies. FAMILY HISTORY: Noncontributory. SOCIAL HISTORY: Nonsmoker, nondrinker. He lives with his and 2 daughters. REVIEW OF SYSTEMS: Other than pertinent positives noted in the HPI, a 14-point review of systems is negative. PHYSICAL EXAMINATION: VITAL SIGNS: His temperature is 36.8, blood pressure 161/88, heart rate 74, oxygen saturation 96% on room air. GENERAL: He is a well-appearing man in no acute distress. HEENT : Sclerae anicteric. Oropharynx is clear. NECK: Supple without lymphadenopathy. LUNGS: Clear t o auscultation bilaterally. CARDIAC: Regular rate and rhythm. No murmurs, gallops, or rubs. ABDO MEN: Normoactive bowel sounds. Nontender, nondistended. EXTREMITIES: Without edema. 2+ pulses. NEUROLOGIC: He was alert and oriented x3. Sensation and gait were normal. LABORATORY DATA: From this morning showed a white count of 3.78, hemoglobin of 15.8, platelets of 1 90. Comprehensive metabolic panel was entirely normal. IMPRESSION: This is a 46-year-old man admitted for his 3rd and final cycle of high-dose cytarabine. He is in a 1st remission. PLAN: 1. He will receive high-dose cytarabine 3 g/sq cm per dose b.i.d. on days 1, 3 and 5. He will rece leoncio appropriate antiemetics. He will also receive prednisolone eyedrops to prevent a chemical conju nctivitis. 2. I will continue his Xarelto for the time being but plan to discontinue it in the outpatient sett ing when his platelet count began to drop. 3. We can discontinue his lisinopril, as his blood pressure tends to drop when he is receiving chem otherapy. 4. After the completion of his chemotherapy, he will have close followup with us in clinic to monit or his counts and give transfusions as needed. His PICC line can be discontinued on discharge. /[id number]/MODL
[2016-05-25] MEDS ORDERED: IBUPROFEN 800 MG TAB PO ONE (20:43)
[2016-05-25] MEDS: ACYCLOVIR 400 MG TAB PO SCH (20:51)
[2016-05-26] MEDS: prednisoLONE ACET 1% 5 ML OPHT.BTL EACHEYE SCH ×5 (00:21→23:43)
[2016-05-26] MEDS ORDERED: ONDANSETRON 4 MG/2 ML VIAL IVP SCH (00:30)
[2016-05-26] MEDS ORDERED: NS IV SCH (01:00)
[2016-05-26] MEDS ORDERED: CYTARABINE IV SCH (01:00)
[2016-05-26 04:23] LABS: % IMMATURE GRANULYOCYTES 0.3 % (0.0-1.1); ABSOLUTE IMMATURE GRANULOCYTES 0.01 10^3/uL (0.00-0.10); ADD DIFF? NO; ADD MORPH? NO; ADD SCAN? NO; ATYPICAL LYMPHOCYTE FLAG 0 (0-99); FRAGMENT RBC FLAG 0 (0-99); HEMATOCRIT 40.8 % (40.0-51.0); HEMOGLOBIN 13.6 g/dL (13.7-17.5); LEFT SHIFT FLG 0 (0-99); LIPEMIA HEMOLYSIS FLAG 80 (0-99); MEAN CELL HEMOGLOBIN 31.5 pg (27.9-34.1); MEAN CELL HEMOGLOBIN CONCENTR. 33.3 g/dL (32.4-36.7); MEAN CELL VOLUME 94.4 fL (81.5-99.8); MEAN PLATELET VOLUME 8.8 fL (8.7-11.7); PLATELET CLUMPS FLAG 20 (0-99); PLATELET COUNT 136 10^3/uL (150-400); RED BLOOD CELL COUNT 4.32 10^6/uL (4.40-6.38); RED CELL DISTRIBUTION WIDTH 13.5 % (11.5-15.2)
[2016-05-26 04:46] LABS: ALANINE AMINOTRANSFERASE 47 IU/L (21-72); ALBUMIN 3.3 g/dL (3.5-5.0); ALKALINE PHOSPHATASE 57 IU/L (38-126); ANION GAP 5 mEq/L (8-16); ASPARTATE AMINOTRANSFERASE 25 IU/L (17-59); BILIRUBIN,TOTAL 0.7 mg/dL (0.1-1.4); CALCIUM 8.5 mg/dL (8.5-10.4); CARBON DIOXIDE 24 mEq/l (22-31); CHLORIDE 109 mEq/L (97-110); CREATININE 0.9 mg/dL (0.7-1.3); GLOMERULAR FILTRATION RATE > 60; GLUCOSE 95 mg/dL (70-100); POTASSIUM 4.4 mEq/L (3.5-5.2); SODIUM 138 mEq/L (134-144); TOTAL PROTEIN 5.6 g/dL (6.3-8.2)
[2016-05-26] MEDS ORDERED: RIVAROXABAN 20 MG TAB PO SCH (09:00)
[2016-05-26] MEDS: ALLOPURINOL 300 MG TAB PO SCH (10:18)
[2016-05-26] MEDS: ACYCLOVIR 400 MG TAB PO SCH ×2 (10:18→20:47)
[2016-05-26] MEDS ORDERED: LORazepam 1 MG TAB PO PRN (14:19)
--- NOTE | 2016-05-26 14:19 | SOAPPROG ---
SOAP Progress Note Assessment/Plan: Assessment: 1. AML, inv(16), in CR1, here for cycle of HiDAC consolidation 2. Headache induced by Zofran 3. L arm DVT (PICC associated) Plan: - will d/c xarelto since he has nearly completed the 3 months of therapy. This will allow him to take ibuprofen for headache - will try Ativan for nausea - once pt is discharged, he will need f/u in clinic on June 05 (a week from Sunday) to monitor his counts. 05/26/16 14:18 Subjective: some headache after Zofran. he would like to take ibuprofen for it but contraindicated due to Xarelto. Other antiemetics (compazine, phenergen) have not helped. otherwise feeling well. Objective: exam NAD no ataxia Vital Signs Temp Pulse Resp BP Pulse Ox 36.7 C 74 16 155/82 H 96 05/26/16 11:53 05/26/16 11:53 05/26/16 11:53 05/26/16 11:53 05/26/16 11:53 Laboratory Results 05/26/16 04:15 05/26/16 04:15 05/25/16 05/26/16 05/27/16 05:59 05:59 05:59 Intake Total 1961 Output Total 1000 400 Balance 961 -400 ICD10 Worksheet Patient Problems: Problems Problem Status Onset AML (acute myeloblastic leukemia) Acute Febrile neutropenia Acute Pancytopenia due to antineoplastic chemotherapy Acute Typhlitis Acute
--- NOTE | 2016-05-26 16:19 | HOSPPROG ---
Hospitalist Progress Note Assessment/Plan: Assessment: 46-year-old male presents for 3rd consolidation with high-dose cytarabine in the setting of AML Plan: 1. AML. Presenting for the 3rd consolidation of high-dose cytarabine, q.12 hours on days 1, 3, 5 -chemotherapy orders per Dr. Box -cont zofran as primary anti-emetic, add ativan PRN -monitor cell counts -salt/soda rinses, monitor for thrush 2. History of PICC line associated DVT. Chronically on Xarelto, patient and Dr. Box decided today to discontinue given time since clot and need for ibuprofen for LIND 3. Hypertension. Chronic, holding lisinopril while he is on chemotherapy 4. Gout. Chronic, continue allopurinol 5. Headache. Seems to be provoked by zofran, avoiding potential for escalation w / aloxi -ibuprofen PRN, patient has tried many Rx and this is the only one which works Diet. Regular Prophylaxis. High risk patient, lovenox 40 Code. Full Disposition. Anticipated discharge is uncertain this time, pending completion of tx. Subjective: Patient with nausea, headache Objective: Vital Signs Temp Pulse Resp BP Pulse Ox 36.7 C 74 16 155/82 H 96 05/26/16 11:53 05/26/16 11:53 05/26/16 11:53 05/26/16 11:53 05/26/16 11:53 Laboratory Results 05/26/16 04:15 05/26/16 04:15 05/25/16 05/26/16 05/27/16 05:59 05:59 05:59 Intake Total 1961 Output Total 1000 400 Balance 961 -400 - Time Spent With Patient Time Spent with Patient: greater than 25 minutes Time Spent with Patient: Greater than 25 minutes spent on this patients care, greater than 50% of time spent counseling, educating, and coordinating care regarding the above mentioned plan. - Physical Exam Constitutional: no apparent distress, appears nourished, not in pain Ears, Nose, Mouth, Throat: moist mucous membranes, hearing normal, no oral mucosal ulcers, No oral thrush Cardiovascular: No edema Neurologic: AAOx3 Psychiatric: interacting appropriately, not anxious, not encephalopathic, thought process linear ICD10 Worksheet Patient Problems: Problems Problem Status Onset AML (acute myeloblastic leukemia) Acute Febrile neutropenia Acute Pancytopenia due to antineoplastic chemotherapy Acute Typhlitis Acute
[2016-05-26] MEDS: IBUPROFEN 800 MG TAB PO PRN (19:43)
[2016-05-27] MEDS: prednisoLONE ACET 1% 5 ML OPHT.BTL EACHEYE SCH ×3 (06:15→18:39)
[2016-05-27 06:40] LABS: % IMMATURE GRANULYOCYTES 0.3 % (0.0-1.1); ABSOLUTE IMMATURE GRANULOCYTES 0.01 10^3/uL (0.00-0.10); ADD DIFF? NO; ADD MORPH? NO; ADD SCAN? NO; ATYPICAL LYMPHOCYTE FLAG 0 (0-99); FRAGMENT RBC FLAG 0 (0-99); HEMATOCRIT 42.6 % (40.0-51.0); HEMOGLOBIN 14.1 g/dL (13.7-17.5); LEFT SHIFT FLG 0 (0-99); LIPEMIA HEMOLYSIS FLAG 80 (0-99); MEAN CELL HEMOGLOBIN 31.8 pg (27.9-34.1); MEAN CELL HEMOGLOBIN CONCENTR. 33.1 g/dL (32.4-36.7); MEAN CELL VOLUME 96.2 fL (81.5-99.8); MEAN PLATELET VOLUME 9.4 fL (8.7-11.7); PLATELET CLUMPS FLAG 10 (0-99); PLATELET COUNT 117 10^3/uL (150-400); RED BLOOD CELL COUNT 4.43 10^6/uL (4.40-6.38); RED CELL DISTRIBUTION WIDTH 13.5 % (11.5-15.2)
[2016-05-27 06:47] LABS: ANION GAP 9 mEq/L (8-16); CARBON DIOXIDE 23 mEq/l (22-31); CHLORIDE 107 mEq/L (97-110); CREATININE 0.9 mg/dL (0.7-1.3); GLOMERULAR FILTRATION RATE > 60; GLUCOSE 89 mg/dL (70-100); POTASSIUM 4.3 mEq/L (3.5-5.2); SODIUM 139 mEq/L (134-144)
[2016-05-27] MEDS ORDERED: ENOXAPARIN 40 MG/0.4 ML SYR SC SCH (09:00)
[2016-05-27] MEDS: ALLOPURINOL 300 MG TAB PO SCH (09:17)
[2016-05-27] MEDS: ACYCLOVIR 400 MG TAB PO SCH ×2 (09:17→21:00)
[2016-05-27] MEDS ORDERED: hydrOXYzine HCL 25 MG TAB PO PRN (10:02)
--- NOTE | 2016-05-27 10:07 | SOAPPROG ---
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 Will add atarax for pruritis and follow. Monitor counts and labs and symptoms Plan: See above. 05/27/16 10:09 Subjective: Doing okay but getting headache from ondansetron. Has noted rash like hives at R knee region No diarrhea or nausea Objective: VSS, Afebrile HEENT- anicteric, no oral lesions Neck - supple Chest- clear CVS- RSR, no extra HS ABD- BS +, soft, NT EXT- no edema, skin intact, a few hives seen at medial surface of R knee, appear 1 + Labs as noted here Vital Signs Temp Pulse Resp BP Pulse Ox 36.8 C 81 16 114/92 H 95 05/27/16 08:58 05/27/16 08:58 05/27/16 08:58 05/27/16 08:58 05/27/16 08:58 Laboratory Results 05/27/16 06:15 05/27/16 06:15 05/26/16 05/27/16 05/28/16 05:59 05:59 05:59 Intake Total 1961 1800 Output Total 1000 1000 Balance 961 800 ICD10 Worksheet Patient Problems: Problems Problem Status Onset AML (acute myeloblastic leukemia) Acute Febrile neutropenia Acute Pancytopenia due to antineoplastic chemotherapy Acute Typhlitis Acute
[2016-05-27] MEDS ORDERED: ONDANSETRON 4 MG/2 ML VIAL IVP SCH (11:30)
[2016-05-27] MEDS: CYTARABINE IV SCH (11:39)
[2016-05-27] MEDS: NS IV SCH (11:39)
[2016-05-27] MEDS ORDERED: PALONOSETRON HCL 0.25 MG/5 ML VIAL IVP SCH (12:00)
--- NOTE | 2016-05-27 12:02 | HOSPPROG ---
Hospitalist Progress Note Assessment/Plan: # AML. Presenting for the 3rd consolidation of high-dose cytarabine, q.12 hours on days 1, 3, 5- WBC 2.9 this am CXR 04/07 (personally reviewed and interpreted) no infiltrates or edema- oxygen saturations 94% on RA -continue chemotherapy orders per Oncology -cont ativan PRN -monitor cell counts -salt/soda rinses, monitor for thrush # Pruritus- adding atarax # 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 Box decided to discontinue given time since clot and need for ibuprofen for LIND # Hypertension-Chronic, holding lisinopril while he is on chemotherapy # Gout-Chronic, continue allopurinol # Headache- Seems to be provoked by zofran- stopping zofran -ibuprofen PRN, patient has tried many Rx and this is the only one which works Diet. Regular Prophylaxis. High risk patient, lovenox 40 Code. Full # Disposition> 2MN as requiring chemotherapy and aggressive supportive care and monitoring I have discussed the case with Oncology - we will hold zofran and treat pruritus today with atarax Subjective: feeling well - small patch of macular erythema on right knee Objective: Vital Signs Temp Pulse Resp BP Pulse Ox 36.8 C 81 16 114/92 H 95 05/27/16 08:58 05/27/16 08:58 05/27/16 08:58 05/27/16 08:58 05/27/16 08:58 Laboratory Results 05/27/16 06:15 05/27/16 06:15 05/26/16 05/27/16 05/28/16 05:59 05:59 05:59 Intake Total 1961 1800 Output Total 1000 1000 Balance 961 800 - Physical Exam Constitutional: appears nourished Eyes: anicteric sclera Ears, Nose, Mouth, Throat: moist mucous membranes Cardiovascular: regular rate and rhythym Respiratory: no respiratory distress, no rales or rhonchi Gastrointestinal: normoactive bowel sounds, soft, non-tender abdomen Genitourinary: no bladder fullness Skin: warm, normal color Musculoskeletal: No asymmetric calves Neurologic: AAOx3 Psychiatric: interacting appropriately, not anxious Lymph, Heme, Immunologic: no cervical LAD ICD10 Worksheet Patient Problems: Problems Problem Status Onset AML (acute myeloblastic leukemia) Acute Febrile neutropenia Acute Pancytopenia due to antineoplastic chemotherapy Acute Typhlitis Acute
[2016-05-27] MEDS ORDERED: ALTEPLASE 2 MG VIAL IVP ONE (18:35)
--- NOTE | 2016-05-27 18:54 | PDHOMEO2F ---
Home Oxygen Face to Face Home Orders: Document entered in the incorrect chart in error. Please disregard. Home oxygen qualifying diagnosis: NA Frequency of home oxygen needed: with activity (NA) Home oxygen liters per minute: NA Home oxygen delivery device: NA E-tanks for mobility and back up: No If ordering portable O2, is the patient mobile in the home?: No Please delete erroneous document. Length of time home oxygen needed: 1 month (NA)
[2016-05-27] MEDS ORDERED: HYDROCORTISONE 2.5% 30 GM CRTUBE TP PRN (19:08)
[2016-05-27] MEDS: HYDROCORTISONE 1% CREAM TP PRN ×2 (21:00→23:59)
[2016-05-27] MEDS: IBUPROFEN 800 MG TAB PO PRN (21:02)
[2016-05-28] MEDS: NS IV SCH
[2016-05-28] MEDS: CYTARABINE IV SCH
[2016-05-28 03:25] LABS: % IMMATURE GRANULYOCYTES 0.3 % (0.0-1.1); ABSOLUTE IMMATURE GRANULOCYTES 0.01 10^3/uL (0.00-0.10); ADD DIFF? NO; ADD MORPH? NO; ADD SCAN? NO; ATYPICAL LYMPHOCYTE FLAG 0 (0-99); FRAGMENT RBC FLAG 0 (0-99); HEMATOCRIT 39.2 % (40.0-51.0); HEMOGLOBIN 13.2 g/dL (13.7-17.5); LEFT SHIFT FLG 0 (0-99); LIPEMIA HEMOLYSIS FLAG 80 (0-99); MEAN CELL HEMOGLOBIN CONCENTR. 33.7 g/dL (32.4-36.7); MEAN CELL VOLUME 94.9 fL (81.5-99.8); MEAN PLATELET VOLUME 9.3 fL (8.7-11.7); PLATELET CLUMPS FLAG 10 (0-99); PLATELET COUNT 115 10^3/uL (150-400); RED BLOOD CELL COUNT 4.13 10^6/uL (4.40-6.38); RED CELL DISTRIBUTION WIDTH 13.4 % (11.5-15.2)
[2016-05-28 03:48] LABS: ANION GAP 5 mEq/L (8-16); CALCIUM 8.6 mg/dL (8.5-10.4); CARBON DIOXIDE 27 mEq/l (22-31); CHLORIDE 107 mEq/L (97-110); CREATININE 0.8 mg/dL (0.7-1.3); GLOMERULAR FILTRATION RATE > 60; GLUCOSE 95 mg/dL (70-100); POTASSIUM 4.3 mEq/L (3.5-5.2); SODIUM 139 mEq/L (134-144)
[2016-05-28] MEDS: prednisoLONE ACET 1% 5 ML OPHT.BTL EACHEYE SCH ×4 (06:12→18:30)
[2016-05-28] MEDS: ALLOPURINOL 300 MG TAB PO SCH (09:28)
[2016-05-28] MEDS: ACYCLOVIR 400 MG TAB PO SCH ×2 (09:28→20:41)
[2016-05-28] MEDS: HYDROCORTISONE 1% CREAM TP PRN ×2 (09:37→20:41)
--- NOTE | 2016-05-28 10:00 | SOAPPROG ---
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 Will add atarax for pruritis and follow. Also will add Prednisone 40 mg po QD for short course, with intent to taper rapidly. Add Ranitidine and Zyrtec for rash also. Monitor counts and labs and symptoms. Anticipate discharge home Sunday evening after his second ELSA-C dose finishes at 8 PM as D/W patient and his . Plan: See above. 05/28/16 09:58 Subjective: Has developed more diffuse drug eruption with next two ELSA-C doses. No diarrhea, oral sx. or resp. sx. LIND better without Aloxi dosing Objective: VSS, afebrile as noted here. HEENT- anicteric, no oral lesions Neck- supple Chest- clear CVS- RSR, No extra HS, ABD- BS+, soft, NT nondistended EXT- no edema Skin- diffuse drug eruption rash over all skin surfaces. Labs as noted here. Vital Signs Temp Pulse Resp BP Pulse Ox 36.4 C 88 18 112/71 91 L 05/28/16 08:00 05/28/16 08:00 05/28/16 08:00 05/28/16 08:00 05/28/16 08:00 Laboratory Results 05/28/16 03:15 05/28/16 03:15 05/27/16 05/28/16 05/29/16 05:59 05:59 05:59 Intake Total 1800 3129 Output Total 1000 2400 Balance 800 729 ICD10 Worksheet Patient Problems: Problems Problem Status Onset AML (acute myeloblastic leukemia) Acute Febrile neutropenia Acute Pancytopenia due to antineoplastic chemotherapy Acute Typhlitis Acute
--- NOTE | 2016-05-28 10:10 | HOSPPROG ---
Hospitalist Progress Note Assessment/Plan: # Acute maculopapular rash - suspect drug reaction 2/2 chemo (allopurinol less likely) - involving the entire trunk and extremities - extreme pruritus cxr 05/25 for PICC placement (personally reviewed and interpreted ) shows clear lung [place]by - oxygen saturations down a bit 90% on RA - start prednisone 40mg daily - start IV benadryl 25mg IV Q6 - start PO zyrtec - start IV ranitidine Q8 # AML- Presenting for the 3rd consolidation of high-dose cytarabine, q.12 hours on days 1, 3, 5- WBC 3.8 this am CXR 04/07 (personally reviewed and interpreted) no infiltrates or edema- oxygen saturations 94% on RA -continue chemotherapy orders per Oncology -cont ativan PRN -monitor cell counts -salt/soda rinses, monitor for thrush # 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 Box decided to discontinue given time since clot and need for ibuprofen for LIND # Hypertension-Chronic - SBP in 110's without meds - cont holding lisinopril # Gout-Chronic, continue allopurinol # Headache- Seems to be provoked by zofran- stopped zofran- improved in past 24 hours - only one dose ibuprofen needed -ibuprofen PRN- # Diet. Regular # Prophylaxis. High risk patient, lovenox 40 # Code. Full # Disposition> 2MN as requiring chemotherapy and aggressive supportive care and monitoring I have discussed the case with Oncology - we will aggressively treat the rash and monitor progression closely Objective: Vital Signs Temp Pulse Resp BP Pulse Ox 36.4 C 88 18 112/71 91 L 05/28/16 08:00 05/28/16 08:00 05/28/16 08:00 05/28/16 08:00 05/28/16 08:00 Laboratory Results 05/28/16 03:15 05/28/16 03:15 05/27/16 05/28/16 05/29/16 05:59 05:59 05:59 Intake Total 1800 3129 Output Total 1000 2400 Balance 800 729 - Physical Exam Constitutional: no apparent distress, appears nourished Eyes: anicteric sclera Ears, Nose, Mouth, Throat: moist mucous membranes Cardiovascular: regular rate and rhythym Respiratory: no respiratory distress, no rales or rhonchi Gastrointestinal: normoactive bowel sounds Genitourinary: no bladder fullness Skin: warm, rash (across entire trunk and extremities - sparing palms and face) Musculoskeletal: No asymmetric calves Neurologic: AAOx3 Psychiatric: interacting appropriately, not anxious Lymph, Heme, Immunologic: no cervical LAD ICD10 Worksheet Patient Problems: Problems Problem Status Onset AML (acute myeloblastic leukemia) Acute Febrile neutropenia Acute Pancytopenia due to antineoplastic chemotherapy Acute Typhlitis Acute
[2016-05-28] MEDS: CETIRIZINE 10 MG TAB PO SCH (10:44)
[2016-05-28] MEDS: predniSONE 20 MG TAB PO SCH (10:44)
[2016-05-28] MEDS ORDERED: RANITIDINE 50 MG/2 ML VIAL IVP SCH (14:00)
[2016-05-28 14:57] VITALS: RESP 16
[2016-05-28] MEDS: RANITIDINE HCL IV SCH ×2 (15:04→22:03)
[2016-05-28] MEDS: D5W IV SCH ×2 (15:04→22:03)
[2016-05-29] MEDS: prednisoLONE ACET 1% 5 ML OPHT.BTL EACHEYE SCH ×4 (00:05→17:03)
[2016-05-29] MEDS: CETIRIZINE 10 MG TAB PO SCH (04:34)
[2016-05-29] MEDS: D5W IV SCH ×3 (04:34→15:10)
[2016-05-29] MEDS: RANITIDINE HCL IV SCH ×3 (04:34→15:10)
[2016-05-29] MEDS: CYTARABINE IV SCH ×2 (05:10→16:56)
[2016-05-29] MEDS: NS IV SCH ×2 (05:10→16:56)
[2016-05-29 05:32] LABS: % IMMATURE GRANULYOCYTES 0.5 % (0.0-1.1); ABSOLUTE IMMATURE GRANULOCYTES 0.02 10^3/uL (0.00-0.10); ADD DIFF? NO; ADD MORPH? NO; ADD SCAN? YES; ATYPICAL LYMPHOCYTE FLAG 0 (0-99); FRAGMENT RBC FLAG 0 (0-99); HEMATOCRIT 37.8 % (40.0-51.0); HEMOGLOBIN 12.6 g/dL (13.7-17.5); LEFT SHIFT FLG 0 (0-99); LIPEMIA HEMOLYSIS FLAG 80 (0-99); MEAN CELL HEMOGLOBIN 31.5 pg (27.9-34.1); MEAN CELL HEMOGLOBIN CONCENTR. 33.3 g/dL (32.4-36.7); MEAN CELL VOLUME 94.5 fL (81.5-99.8); MEAN PLATELET VOLUME 8.9 fL (8.7-11.7); PLATELET CLUMPS FLAG 20 (0-99); PLATELET COUNT 104 10^3/uL (150-400); RED CELL DISTRIBUTION WIDTH 13.4 % (11.5-15.2)
[2016-05-29 05:41] LABS: ANION GAP 6 mEq/L (8-16); CALCIUM 8.9 mg/dL (8.5-10.4); CARBON DIOXIDE 26 mEq/l (22-31); CHLORIDE 108 mEq/L (97-110); CREATININE 0.9 mg/dL (0.7-1.3); GLOMERULAR FILTRATION RATE > 60; GLUCOSE 128 mg/dL (70-100); POTASSIUM 3.8 mEq/L (3.5-5.2); SODIUM 140 mEq/L (134-144)
[2016-05-29 06:23] LABS: SCAN NEGATIVE
[2016-05-29] MEDS: ALLOPURINOL 300 MG TAB PO SCH (09:37)
[2016-05-29] MEDS: ACYCLOVIR 400 MG TAB PO SCH ×2 (09:38→20:53)
[2016-05-29] MEDS: predniSONE 20 MG TAB PO SCH (09:38)
[2016-05-29] MEDS ORDERED: ONDANSETRON 4 MG/2 ML VIAL IVP SCH (10:30)
--- NOTE | 2016-05-29 14:31 | SOAPPROG ---
SOAP Progress Note Assessment/Plan: E&M for AML * AML, inv(16), in CR1, here for cycle of HiDAC consolidation - will finish today and clinically stable to go home with follow up later this week. * L arm DVT (PICC associated): will pull current PICC when done. * Rash: characteristic of a drug rash; better with prednisone and zyrtec. Will continue for the next week. Subjective: Rash and itching is better. No acute complaints. Objective: Vital Signs Temp Pulse Resp BP Pulse Ox 36.6 C 60 16 120/83 H 95 05/29/16 07:49 05/29/16 07:49 05/29/16 07:49 05/29/16 07:49 05/29/16 07:49 Laboratory Results 05/29/16 05:10 05/29/16 05:10 05/28/16 05/29/16 05/30/16 05:59 05:59 05:59 Intake Total 3129 474 Output Total 2400 3600 Balance 729 -3126 Physical Exam - Physical Exam General Appearance: no apparent distress EENT: pharynx normal Respiratory: lungs clear Cardiac/Chest: regular rate, rhythm Abdomen: non-tender, soft Skin: rash (scattered papules are improved), other (PICC on right without swelling) ICD10 Worksheet Patient Problems: Problems Problem Status Onset AML (acute myeloblastic leukemia) Acute Febrile neutropenia Acute Pancytopenia due to antineoplastic chemotherapy Acute Typhlitis Acute
--- NOTE | 2016-05-29 18:51 | GDS ---
[f rep st] DISCHARGE SUMMARY DISCHARGE DIAGNOSES: Include: 1. Acute myelogenous leukemia presenting for chemotherapy. 2. Acute maculopapular rash thought secondary to Cytarabine. 3. Gout. 4. Hypertension. HISTORY OF PRESENT ILLNESS: A 46-year-old male who completed his consolidation therapy, and is re-p resenting for his next round of chemotherapy for AML. For details of the patient's initial presenta tion, please see the history and physical dated 05/25/2016. CONSULTATIVE SERVICES: Include Hematology/Oncology. PROCEDURES PERFORMED: None. HOSPITAL COURSE: By issue: 1. AML. The patient tolerated this round of chemotherapy very well. White count on the day of dis charge is 3.9. He will follow closely with [facility] post disposition for counts and any postchemotherap y symptom. 2. Acute maculopapular rash. The patient developed a diffuse itchy maculopapular rash after his th ird dose of Cytarabine. We believe this is likely the cause. He was treated inpatient with prednis one 40, oral Zyrtec, IV ranitidine, and IV Benadryl. On the day of disposition, with continued use of cytarabine, the patient's rash was improved. We are discharging him with a short prednisone tape r. He has been instructed to continue Zyrtec and oral ranitidine while the rash is present, and aga in will follow in the outpatient setting with [facility] for any ongoing symptoms. 3. Hypertension. The patient had his lisinopril held during this hospital stay. It is being held at discharge, as his blood pressures have been normal. 4. Headache, thought secondary to Zofran. When this medication was removed off his list, he did im prove, and is being kept off his list at this time. 5. PICC line associated DVT. Patient was previously on a novel anticoagulant. This was discontinu ed during this stay, as the need for anti-inflammatories was present. We are discharging him off th is anticoagulant at this time after discussions with Dr. Box. It can be readdressed post dispo sition. PICC line the patient has while here in the hospital will be pulled prior to disposition. DISCHARGE MEDICATIONS: Please reference medication reconciliation printed on 05/29/2016. FOLLOWUP APPOINTMENTS: Include with [facility] in the next week's time for his first post chemotherapy la b check and followup. PENDING STUDIES: At the time of this dictation are none. TIME SPENT: I spent greater than 30 minutes in the planning and coordination of this discharge. /[id number]/MODL
[2016-05-29] MEDS: IBUPROFEN 800 MG TAB PO PRN (19:49)
[2016-05-29 20:08] VITALS: BP 136/81; PULSE 80; TEMP 97.8; O2SAT 92
== END 2016-05-29 21:30 | disposition home or self-care (01) | DRG 839 ==
LOC: F1N 11:18
PROVIDERS: ADMIT Internal Medicine Hematology & Oncology; ATTEND Hospitalist
PROC: 02HV33Z Insertion of Infusion Device into Superior Vena Cava, Percutaneous Approach (ICD-10-PCS; principal; 2016-05-25)
PROC: 3E03305 Introduction of Other Antineoplastic into Peripheral Vein, Percutaneous Approach (ICD-10-PCS; principal; 2016-05-25)
DX: Z51.11 Encounter for antineoplastic chemotherapy (principal); C92.00 Acute myeloblastic leukemia, not having achieved remission; R21 Rash and other nonspecific skin eruption; T45.1X5A Adverse effect of antineoplastic and immunosuppressive drugs, initial encounter; R51 Headache; T45.0X5A Adverse effect of antiallergic and antiemetic drugs, initial encounter; M10.9 Gout, unspecified; I10 Essential (primary) hypertension; Z79.01 Long term (current) use of anticoagulants; Z86.718 Personal history of other venous thrombosis and embolism
CPT/HCPCS: J1200; J1650; J2405; J2469; J2780; J9100

== ENCOUNTER → 2016-05-25 | Day surgery (SDC) | payer OTHER | END | disposition home or self-care (01) | LOC: FIMAGING 09:49 | PROVIDERS: ATTEND Internal Medicine Hematology & Oncology | PROC: 02HV33Z Insertion of Infusion Device into Superior Vena Cava, Percutaneous Approach (ICD-10-PCS; principal; 2016-05-25) | DX: C92.90 Myeloid leukemia, unspecified, not having achieved remission (principal) | CPT/HCPCS: 36569; 77001; C1751 ==

== ENCOUNTER 2016-06-05 18:03 | Outpatient (CLI) | payer OTHER ==
[2016-06-05] MEDS ORDERED: ACETAMINOPHEN 325 MG TAB PO ONE (19:00)
[2016-06-05] MEDS ORDERED: diphenhydrAMINE 25 MG CAP PO ONE (19:00)
== END 2016-06-05 19:55 | disposition home or self-care (01) ==
LOC: FOBOP 18:03
PROVIDERS: ATTEND Internal Medicine Hematology & Oncology
PROC: 30233R1 Transfusion of Nonautologous Platelets into Peripheral Vein, Percutaneous Approach (ICD-10-PCS; principal; 2016-06-05)
DX: C92.00 Acute myeloblastic leukemia, not having achieved remission (principal); D61.818 Other pancytopenia
CPT/HCPCS: 36430; P9037

== ENCOUNTER → 2016-06-09 | Outpatient (CLI) | payer OTHER ==
[~2016-06-09] MED LIST: ACETAMINOPHEN 325 MG TAB PO ONE; diphenhydrAMINE 25 MG CAP PO ONE
[2016-06-09 12:47] VITALS: BP 120/90; PULSE 86; RESP 16; TEMP 97.3; O2SAT 99
== END ==
LOC: FOBOP 11:58
PROVIDERS: ATTEND Internal Medicine Hematology & Oncology
PROC: 30233R1 Transfusion of Nonautologous Platelets into Peripheral Vein, Percutaneous Approach (ICD-10-PCS; principal; 2016-06-09)
DX: D61.9 Aplastic anemia, unspecified (principal); Z92.21 Personal history of antineoplastic chemotherapy
CPT/HCPCS: P9037

== ENCOUNTER → 2018-05-10 | Outpatient (CLI) | payer OTHER | LOC: FIMAGING 18:31 | PROVIDERS: ATTEND Family Medicine | DX: R05 Cough (principal) ==